=== PATIENT | male | born 1950 | race Two or more races ===

== ENCOUNTER 2019-08-13 12:26 | Inpatient (IN) | payer MEDICARE, OTHER ==
[~2019-08-13] VITALS: Ht 162.6 cm; Wt 74.4 kg
[2019-08-13] MEDS ORDERED: INDERAL LA60 MG ORAL (12:30)
--- NOTE | 2019-08-13 12:45 | NUR ---
ED Nurse Note: Pt arrived via ambulance for SOB. Pt came from MD office after having SOB starting today. Pt has had mid abdominal pain /10 for 1 month. He is set up on insole tack puller hand. Pt O2 is 95% RA, BP 186/117, HR 117. ERMD notified of vital signs.
--- NOTE | 2019-08-13 12:48 | NUR ---
ED Nurse Note: Report received from MARTA Parisi. Pt saturat at 91% room air. placed pt on 2 L nasal cannula. IV site established per RA 29; line patent and intact blood work drawn, and sent to lab. pt presents with Sinus tach of 117 and sbp of 178 informed ermd.
[2019-08-13 12:49] VITALS: BP 186/117
--- NOTE | 2019-08-13 12:59 | NUR ---
ED Nurse Note: xray at bedside
[2019-08-13 13:05] LABS: HEMATOCRIT 44.7 % (42.0-52.0); HEMOGLOBIN 15.3 G/DL (14.2-18.0); LYMPHOCYTES % (AUTO) 33.7 % (20.0-45.0); MEAN CORPUSCULAR VOLUME 91 FL (80-99); MONOCYTES % (AUTO) 7.4 % (1.0-10.0); NEUTROPHILS % (AUTO) 55.8 % (45.0-75.0); PLATELET COUNT 355 K/UL (150-450); RED BLOOD COUNT 4.93 M/UL (4.70-6.10); RED CELL DISTRIBUTION WIDTH 11.7 % (11.6-14.8); WHITE BLOOD COUNT 9.5 K/UL (4.8-10.8)
--- NOTE | 2019-08-13 13:12 | NUR ---
ED Nurse Note: ERMD aware of tachycardia 124 and hypertension of 195/144. Will continue to monitor and await further orders.
[2019-08-13 13:17] LABS: ANION GAP 11 mmol/L (5-15); BLOOD UREA NITROGEN 18 mg/dL (7-18); CALCIUM 8.9 MG/DL (8.5-10.1); CARBON DIOXIDE 25 MMOL/L (21-32); CHLORIDE 100 MMOL/L (98-107); CREATININE 1.3 MG/DL (0.55-1.30); POTASSIUM 4.2 MMOL/L (3.5-5.1); SODIUM 135 MMOL/L (136-145)
--- NOTE | 2019-08-13 13:25 | NUR ---
ED Nurse Note: COVID swab sent to lab
[2019-08-13 13:29] LABS: ALANINE AMINOTRANSFERASE 20 U/L (12-78); ALBUMIN/GLOBULIN RATIO 0.6 (1.0-2.7); ALKALINE PHOSPHATASE 93 U/L (46-116); ASPARTATE AMINO TRANSFERASE 22 U/L (15-37); BILIRUBIN,TOTAL 0.8 MG/DL (0.2-1.0)
[2019-08-13] MEDS ORDERED: Omnipaque 350 100ml vial INJ PRN (13:45)
[2019-08-13] MEDS ORDERED: Metoprolol Tartrate 5mg/5ml Inj IVP SCH (13:45)
--- NOTE | 2019-08-13 13:52 | NUR ---
ED Nurse Note: completed pt belongings list. pt has large sum of money; please refer to belongings list as reference. pt refuses to place money into safe.
--- NOTE | 2019-08-13 13:55 | NUR ---
ED Nurse Note: PT taken to CT on keith with radioloigy tech.
--- NOTE | 2019-08-13 14:05 | Diagnostic Imaging Report ---
Procedure: XRAY Chest 1v Reason for study: Cough and shortness of breath Comparison films: None. FINDINGS: A single one view chest is obtained. Vascularity is prominent. There is right perihilar and bibasilar infiltrates as well as left upper lobe infiltrates. There may be underlying edema as well. There is cardiomegaly. No large effusion seen. The bony thorax appear unremarkable. IMPRESSION: Congestion and bilateral alveolar densities suggestive of bilateral infiltrates. Underlying edema cannot be excluded.
--- NOTE | 2019-08-13 14:11 | NUR ---
ED Nurse Note: clarified medication order for lopressor q 5 min x3. per ermd administer one dose and reassess for now. will discuss if a second dose is needed.
[2019-08-13 14:20] VITALS: BP 135/99
--- NOTE | 2019-08-13 14:57 | Emergency Room Report ---
History of Present Illness General Chief Complaint: Dyspnea/Respdistress Source: EMS Present Illness HPI 69 yo M presents to ED c/o SOB. from MD office with SOB x 5 days. patient states mild cough. dry. no fevers or chills. no sick contacts or recent travel. denies taking any medication. No other aggravating relieving factors. Denies any other associated symptoms Allergies: Coded Allergies: No Known Allergies (Unverified , 08/13/19) COVID-19 Screening Contact w/high risk pt: No Recent Travel to affected area: No Experienced COVID-19 symptoms?: Yes COVID-19 symptoms experienced: Shortness of Breath COVID-19 Testing performed CHIP SEPARATOR: No Patient History Past Medical History: none Past Surgical History: none Pertinent Family History: none Social History: Denies: smoking, alcohol use, drug use Immunizations: UTD Reviewed Nursing Documentation: PMH: Agreed; PSxH: Agreed Nursing Documentation-PMH Past Medical History: No History, Except For Hx Cardiac Problems: Yes Review of Systems All Other Systems: negative except mentioned in HPI Physical Exam Vital Signs Date Time Temp Pulse Resp B/P (MAP) Pulse Ox O2 Delivery O2 Flow Rate FiO2 08/13/19 12:19 98.6 08/13/19 12:19 112 18 146/104 (118) 95 Room Air 08/13/19 12:49 99 08/13/19 14:20 2.0 Sp02 EP Interpretation: reviewed, normal General Appearance: no apparent distress, alert, GCS 15, non-toxic Head: normocephalic, atraumatic Eyes: bilateral eye normal inspection, bilateral eye PERRL ENT: hearing grossly normal, normal pharynx, no angioedema, normal voice Neck: full range of motion, supple/symm/no masses Respiratory: chest non-tender, lungs clear, normal breath sounds, speaking full sentences Cardiovascular #1: no edema, tachycardia Cardiovascular #2: 2+ carotid (R), 2+ carotid (L), 2+ radial (R), 2+ radial (L) , 2+ dorsalis pedis (R), 2+ dorsalis pedis (L) Gastrointestinal: normal bowel sounds, non tender, soft, non-distended, no guarding, no rebound Rectal: deferred Genitourinary: normal inspection, no CVA tenderness Musculoskeletal: back normal, normal range of motion, gait/station normal, swelling - 1+ pitting edema Neurologic: alert, motor strength/tone normal, oriented x3, sensory intact, responsive, speech normal Psychiatric: judgement/insight normal, memory normal, mood/affect normal, no suicidal/homicidal ideation Reflexes: 3+ bicep (R), 3+ bicep (L), 3+ tricep (R), 3+ tricep (L), 3+ knee (R) , 3+ knee (L) Skin: no rash Lymphatic: no adenopathy Procedures Critical Care Time Critical Care Time i. I feel this is a highly complex case requiring extensive working including EKG/Rhythm strip, Xray/CT/US, Blood/urine lab work, repeat exams while in ED, and administration of strong opiates/narcotics for pain control, admission to hospital or close patient follow up. Total time: 30 min bedside evaluation and treatment excludes procedures (EKG). Reason for critical care: hypertensive/tachycardia Possible complications: hypotension, hypertension, TX, shock, arrhythmias, metabolic acidosis, end organ damage, respiratory failure. Interventions: labs, EKG, CXR, CTA, lopressor, abx. Course: patient with SOB. trop 0.110, ddimer elevated, ?infiltrates on CXR. CTA shows bilateral effusions and infiltrates. given loperssor with BP and HR improved. given abx. covid swab sent. Consultations: nursing staff, EMS, family Performed by: Dr Chaudhary Tolerated well condition = serious j. because of unstable vital signs this patient had a condition that could potentially threaten life or limb. I feel this is a critical patient who required my full attention while patient was considered critical. Total Critical Care Time excluding procedures was greater than 35 minutes Medical Decision Making Diagnostic Impression: Primary Impression: Pleural effusion Additional Impression: Pneumonia Qualified Codes: J18.9 - Pneumonia, unspecified organism ER Course Hospital Course 69 yo M presents with SOB. Differential diagnoses include: Pneumonia, CHF exacerbation, pneumothorax, fluid overload Clinical course Patient placed on stretcher. Isolation. I wore full PPE. On tube room cashier with hypertension and tachycardia. After initial history and physical, I ordered labs, IV fluids, EKG, chest x-ray, blood cultures, UA. Patient placed on nasal cannula with O2 saturation improving Labs -no leukocytosis, hemoglobin/hematocrit stable, electrolytes ok, trop 0.110 , ddimer elevated CXR -bialteral infiltrates EKG - sinus tachycardia no acute ischemic changes inteprreted by me CTA chest - no PE, bilateral pleural effusions, bialteral infiltrates COVID swab sent. Given broad-spectrum antibiotics. Tachycardia and hypertension improved after Lopressor. Case discussed with Dr. Ayers and he agreed to the patient to his service for further care and support I feel this is a highly complex case requiring extensive working including EKG/ Rhythm strip, Xray/CT/US, Blood/urine lab work, repeat exams while in ED, and administration of strong opiates/narcotics for pain control, admission to hospital or close patient follow up. Diagnosis - pneumonia, pleural effusion Patient admitted to telemetry in serious condition Labs Test 08/13/19 12:46 White Blood Count 9.5 K/UL (4.8-10.8) Red Blood Count 4.93 M/UL (4.70-6.10) Hemoglobin 15.3 G/DL (14.2-18.0) Hematocrit 44.7 % (42.0-52.0) Mean Corpuscular Volume 91 FL (80-99) Mean Corpuscular Hemoglobin 31.1 PG (27.0-31.0) Mean Corpuscular Hemoglobin Concent 34.3 G/DL (32.0-36.0) Red Cell Distribution Width 11.7 % (11.6-14.8) Platelet Count 355 K/UL (150-450) Mean Platelet Volume 5.5 FL (6.5-10.1) Neutrophils (%) (Auto) 55.8 % (45.0-75.0) Lymphocytes (%) (Auto) 33.7 % (20.0-45.0) Monocytes (%) (Auto) 7.4 % (1.0-10.0) Eosinophils (%) (Auto) 2.0 % (0.0-3.0) Basophils (%) (Auto) 1.0 % (0.0-2.0) D-Dimer 3.78 mg/L FEU (0.00-0.49) Sodium Level 135 MMOL/L (136-145) Potassium Level 4.2 MMOL/L (3.5-5.1) Chloride Level 100 MMOL/L (98-107) Carbon Dioxide Level 25 MMOL/L (21-32) Anion Gap 11 mmol/L (5-15) Blood Urea Nitrogen 18 mg/dL (7-18) Creatinine 1.3 MG/DL (0.55-1.30) Estimat Glomerular Filtration Rate 54.7 mL/min (>60) Glucose Level 111 MG/DL (74-106) Lactic Acid Level 1.70 mmol/L (0.4-2.0) Calcium Level 8.9 MG/DL (8.5-10.1) Total Bilirubin 0.8 MG/DL (0.2-1.0) Aspartate Amino Transf (AST/SGOT) 22 U/L (15-37) Alanine Aminotransferase (ALT/SGPT) 20 U/L (12-78) Alkaline Phosphatase 93 U/L (46-116) Troponin I 0.110 ng/mL (0.000-0.056) Pro-B-Type Natriuretic Peptide 49603 pg/mL (0-125) Total Protein 8.3 G/DL (6.4-8.2) Albumin 3.0 G/DL (3.4-5.0) Globulin 5.3 g/dL Albumin/Globulin Ratio 0.6 (1.0-2.7) EKG Diagnostic Results Rate: tachycardiac Rhythm: NSR ST Segments: no acute changes ASA given to the pt in ED: No Rhythm Strip Diag. Results EP Interpretation: yes Rhythm: NSR, no PVC's, no ectopy Chest X-Ray Diagnostic Results Chest X-Ray Diagnostic Results : Chest X-Ray Ordered: Yes # of Views/Limited/Complete: 1 View Indication: Shortness of Breath EP Interpretation: Yes Interpretation: no pneumothorax, other - infiltrates bilaterally Impression: Other - pneumonia Electronically Signed by: Electronically signed by Gold Chaudhary MD CT/MRI/US Diagnostic Results CT/MRI/US Diagnostic Results : Imaging Test Ordered: CTA chest Impression Procedure: CTA Chest w Contrast EXAM: CT CTA Chest w Contrast CLINICAL HISTORY: Reason For Exam: SOB. TECHNIQUE: CT angiogram of the pulmonary vasculature performed with IV contrast. 2-D and 3-D reformat images obtained. All CT scans at this facility are performed using dose modulation techniques as appropriate to a performed exam including the following: automated exposure control with adjustment of the mA and/or kV according to patient size. RADIATION DOSE: CTDIvol: 69.9 mGy DLP: 282.1 mGy-cm Dose information generated by the CT scanner is available in PACS. COMPARISON: None FINDINGS: There is adequate opacification of the pulmonary vascularity. There is no central filling defects or thrombus identified. Peripheral subsegmental branches also appear unremarkable. Aorta is normal in caliber. There is no mediastinal mass or adenopathy. There are bilateral infiltrates left greater than right. Bilateral moderate pleural effusions demonstrated. Limited images through the upper abdomen show a cirrhotic liver. Small layering gallstones at the gallbladder neck. Degenerative changes of the spine noted. IMPRESSION: NO CT EVIDENCE OF PULMONARY EMBOLISM. BILATERAL INFILTRATES AND BILATERAL EFFUSIONS. CIRRHOSIS. GALLSTONES. Last Vital Signs Date Time Temp Pulse Resp B/P (MAP) Pulse Ox O2 Delivery O2 Flow Rate FiO2 08/13/19 14:20 98.9 102 24 135/99 96 Nasal Cannula 2.0 08/13/19 12:49 99 Status: improved Disposition: ADMITTED INPATIENT Condition: Serious Referrals: NON PHYSICIAN (PCP) Gold Chaudhary MD August 13, 2019 14:57
[2019-08-13] MEDS ORDERED: Piperacillin/Tazobactam 3.375 GM in NS 110 ML IVPB ONE (15:00)
[2019-08-13] MEDS ORDERED: Azithromycin 500 MG in NS 275 ML IV ONE (15:00)
[2019-08-13 15:08] VITALS: BP 149/103
--- NOTE | 2019-08-13 16:13 | NUR ---
ED Nurse Note: Pt in bed asleep saturating at 100% on 2 L nasal cannula; NAD noted.
--- NOTE | 2019-08-13 17:05 | NUR ---
ED Nurse Note: Pt complaining about dry throat and cough. pt provided with water informed ermd waiting for further orders
[2019-08-13 17:07] VITALS: BP 120/96
[2019-08-13] MEDS ORDERED: guaiFENesin 100mg/5ml Liq ud ORAL ONE (17:15)
[2019-08-13] MEDS ORDERED: Mylanta II UD 30ml ORAL PRN (18:15)
[2019-08-13] MEDS ORDERED: Milk of Magnesia 30ml Ud ORAL PRN (18:15)
[2019-08-13] MEDS ORDERED: DiphenhydrAMINE 25mg Tab ORAL PRN (18:15)
[2019-08-13] MEDS ORDERED: Albuterol/Ipratropium 3ml neb HHN PRN (18:15)
--- NOTE | 2019-08-13 18:28 | NUR ---
ED Nurse Note: telephone endorsement given to MARTA zhang for continuity of care
--- NOTE | 2019-08-13 19:05 | NUR ---
ED Nurse Note: endorsed plan of care to MARTA glass
[2019-08-13 19:10] VITALS: BP 130/98
--- NOTE | 2019-08-13 19:10 | NUR ---
ED Nurse Note: Report received from MARTA Dawn. Pt is resting in bed, NAD. VSS. Pt will be taken to tele unit and pt is aware of admission.
--- NOTE | 2019-08-13 19:30 | NUR ---
ED Nurse Note: Spoke with pt daughter Tiera regarding pt status with permission of pt. Pt daughter would like to be contacted with any changes in condition. Tiera's number is [phone].
[2019-08-13] MEDS ORDERED: Vancomycin 1.25gm/NS Premix IVPB ONE (20:00)
--- NOTE | 2019-08-13 20:05 | NUR ---
ED Nurse Note: Pt is stable for transfer to unit at this time per ERMD. Pt is aaox4, no acute distress. Pt remains on 2L of oxygen via NC, breathing is normal and unlabored. Pt taken to unit via gurney by trish and RN, connected to surveillance system monitor. ISO precuations taken for transfer to unit. IV is patent and intact. Pt belongings sent with pt. VSS.
--- NOTE | 2019-08-13 20:12 | NUR ---
NURSE NOTES: Received report from MARTA Carballo. Patient was transferred to Telemetry unit from ER via gurney without incident. No signs of acute distress noted; denies pain at this time. On 2L nasal cannula. AOx4; able to make needs known. Primarily Portuguese speaking, but understands and speaks [place]. Ambulates independently with steady gait. Checked IV site; patent and flushed. No erythema, bleeding, or infiltration noted. Belongings list checked with patient. Skin assessment performed; skin is intact. Bed at lowest position, brakes on, siderails up x2. Call light within reach. Will continue to monitor.
[2019-08-13 20:40] VITALS: BP 139/89
[2019-08-13] MEDS: Heparin 5000 units/ml inj SUBQ SCH (21:36)
[2019-08-13] MEDS: Docusate 100mg cap ORAL SCH (21:36)
[2019-08-14] VITALS: BP 130/86
[2019-08-14] MEDS: Piperacillin/Tazobactam 3.375 GM in NS 110 ML IVPB SCH ×2 (00:06→05:39)
[2019-08-14 04:00] VITALS: BP 135/84
[2019-08-14 07:00] LABS: EOSINOPHILS % (AUTO) 2.1 % (0.0-3.0); HEMATOCRIT 43.4 % (42.0-52.0); HEMOGLOBIN 14.9 G/DL (14.2-18.0); LYMPHOCYTES % (AUTO) 27.9 % (20.0-45.0); MEAN CORPUSCULAR VOLUME 91 FL (80-99); MONOCYTES % (AUTO) 11.3 % (1.0-10.0); NEUTROPHILS % (AUTO) 57.7 % (45.0-75.0); PLATELET COUNT 313 K/UL (150-450); RED BLOOD COUNT 4.75 M/UL (4.70-6.10); RED CELL DISTRIBUTION WIDTH 11.9 % (11.6-14.8); WHITE BLOOD COUNT 9.7 K/UL (4.8-10.8)
[2019-08-14 07:34] LABS: ANION GAP 11 mmol/L (5-15); BLOOD UREA NITROGEN 21 mg/dL (7-18); CALCIUM 8.8 MG/DL (8.5-10.1); CARBON DIOXIDE 26 MMOL/L (21-32); CHLORIDE 103 MMOL/L (98-107); CREATININE 1.4 MG/DL (0.55-1.30); POTASSIUM 4.5 MMOL/L (3.5-5.1); SODIUM 139 MMOL/L (136-145)
--- NOTE | 2019-08-14 07:40 | NUR ---
NURSE NOTES: Nurse report given by MARTA Ha. Patient's awake and sitting in bed, eating breakfast, eyes open spontaneously, AO x 4, breathing regular and unlabored, no s/s of distress or SOB, no s/s of pain, denies chest pain, PERRLA. Bed low and locked, call light within reach, side rails x 2, delivery engineer is on. IV is running mediation at this time, no s/s of tenderness or infiltration. Will continue to monitor.
--- NOTE | 2019-08-14 07:40 | NUR ---
HAND-OFF: Report given to MARTA Carballo. Patient is awake lying semi-barahona's; resting comfortably. In stable condition.
[2019-08-14 08:00] VITALS: BP 152/96
[2019-08-14] MEDS: Docusate 100mg cap ORAL SCH ×2 (08:40→21:44)
[2019-08-14] MEDS: Heparin 5000 units/ml inj SUBQ SCH ×2 (08:41→21:43)
--- NOTE | 2019-08-14 08:53 | Cardiac Electrophysiology PN ---
Objective Last 24 Hour Vital Signs Date Time Temp Pulse Resp B/P (MAP) Pulse Ox O2 Delivery O2 Flow Rate FiO2 08/14/19 04:00 98.2 105 16 135/84 (101) 92 08/14/19 04:00 102 08/14/19 01:30 Nasal Cannula 2.0 08/14/19 00:00 97.5 100 18 130/86 (101) 93 08/14/19 00:00 102 08/13/19 20:42 106 08/13/19 20:40 97.2 108 18 139/89 (106) 93 08/13/19 20:05 98.8 85 20 145/90 100 Nasal Cannula 2.0 08/13/19 19:10 98.8 99 20 130/98 97 Nasal Cannula 2.0 08/13/19 17:07 98.9 97 23 120/96 96 Nasal Cannula 2.0 99 08/13/19 15:08 98.9 96 24 149/103 93 Nasal Cannula 2.0 99 08/13/19 14:20 98.9 102 24 135/99 96 Nasal Cannula 2.0 08/13/19 14:12 121 195/111 08/13/19 12:49 117 19 Room Air 99 08/13/19 12:49 98.6 117 19 186/117 95 Room Air 08/13/19 12:19 99.0 112 18 146/104 (118) 95 Room Air 08/13/19 12:19 98.6 Intake and Output 08/13/19 08/14/19 19:00 07:00 Intake Total 385 ml 659.3 ml Output Total 400 ml Balance 385 ml 259.3 ml Intake Oral 0 ml 240 ml IV Total 385 ml 419.3 ml Output Urine Total 400 ml # Voids 1 Laboratory Tests Test 08/13/19 12:46 08/13/19 19:15 08/14/19 05:33 White Blood Count 9.5 K/UL (4.8-10.8) 9.7 K/UL (4.8-10.8) Red Blood Count 4.93 M/UL (4.70-6.10) 4.75 M/UL (4.70-6.10) Hemoglobin 15.3 G/DL (14.2-18.0) 14.9 G/DL (14.2-18.0) Hematocrit 44.7 % (42.0-52.0) 43.4 % (42.0-52.0) Mean Corpuscular Volume 91 FL (80-99) 91 FL (80-99) Mean Corpuscular Hemoglobin 31.1 PG (27.0-31.0) H 31.3 PG (27.0-31.0) H Mean Corpuscular Hemoglobin Concent 34.3 G/DL (32.0-36.0) 34.4 G/DL (32.0-36.0) Red Cell Distribution Width 11.7 % (11.6-14.8) 11.9 % (11.6-14.8) Platelet Count 355 K/UL (150-450) 313 K/UL (150-450) Mean Platelet Volume 5.5 FL (6.5-10.1) L 5.6 FL (6.5-10.1) L Neutrophils (%) (Auto) 55.8 % (45.0-75.0) 57.7 % (45.0-75.0) Lymphocytes (%) (Auto) 33.7 % (20.0-45.0) 27.9 % (20.0-45.0) Monocytes (%) (Auto) 7.4 % (1.0-10.0) 11.3 % (1.0-10.0) H Eosinophils (%) (Auto) 2.0 % (0.0-3.0) 2.1 % (0.0-3.0) Basophils (%) (Auto) 1.0 % (0.0-2.0) 1.0 % (0.0-2.0) D-Dimer 3.78 mg/L FEU (0.00-0.49) H Sodium Level 135 MMOL/L (136-145) L 139 MMOL/L (136-145) Potassium Level 4.2 MMOL/L (3.5-5.1) 4.5 MMOL/L (3.5-5.1) Chloride Level 100 MMOL/L (98-107) 103 MMOL/L (98-107) Carbon Dioxide Level 25 MMOL/L (21-32) 26 MMOL/L (21-32) Anion Gap 11 mmol/L (5-15) 11 mmol/L (5-15) Blood Urea Nitrogen 18 mg/dL (7-18) 21 mg/dL (7-18) H Creatinine 1.3 MG/DL (0.55-1.30) 1.4 MG/DL (0.55-1.30) H Estimat Glomerular Filtration Rate 54.7 mL/min (>60) 50.2 mL/min (>60) Glucose Level 111 MG/DL (74-106) H 88 MG/DL (74-106) Lactic Acid Level 1.70 mmol/L (0.4-2.0) Calcium Level 8.9 MG/DL (8.5-10.1) 8.8 MG/DL (8.5-10.1) Total Bilirubin 0.8 MG/DL (0.2-1.0) Aspartate Amino Transf (AST/SGOT) 22 U/L (15-37) Alanine Aminotransferase (ALT/SGPT) 20 U/L (12-78) Alkaline Phosphatase 93 U/L (46-116) Troponin I 0.110 ng/mL (0.000-0.056) 0.090 ng/mL (0.000-0.056) Pro-B-Type Natriuretic Peptide 40758 pg/mL (0-125) H Total Protein 8.3 G/DL (6.4-8.2) H Albumin 3.0 G/DL (3.4-5.0) L Globulin 5.3 g/dL Albumin/Globulin Ratio 0.6 (1.0-2.7) L Cain Arteaga MD August 14, 2019 08:53
--- NOTE | 2019-08-14 10:17 | Consultation ---
History of Present Illness General Date patient seen: August 14, 2019 Chief Complaint: Dyspnea/Respdistress Reason for Consultation: Shortness of breath Present Illness HPI This is a 69 year old male with past medical history significant for hypertension and HLD presents with progressively worsening shortness of breath over the past several days. Notes low grade fever, chills, dry cough. No chest pain. NOo nausea, abdominal pain or diarrhea. He underwent CT chest in the ED as noted below. CHEST CT: IMPRESSION: NO CT EVIDENCE OF PULMONARY EMBOLISM. BILATERAL INFILTRATES AND BILATERAL EFFUSIONS. CIRRHOSIS. GALLSTONES. Allergies: Coded Allergies: No Known Allergies (Unverified , 08/13/19) Medication History Scheduled Propranolol Hcl* (Inderal La*), 60 MG ORAL DAILY, (Reported) Patient History Healthcare decision maker Resuscitation status Advanced Directive on File Physical Exam General Appearance: WD/WN, no apparent distress Lines, tubes and drains: peripheral HEENT: normocephalic, atraumatic Neck: non-tender, normal alignment Respiratory/Chest: chest wall non-tender, rhonchi - bilaterally Cardiovascular/Chest: normal peripheral pulses, normal rate, regular rhythm Abdomen: normal bowel sounds, non tender, soft, no mass Extremities: non-tender, normal inspection, no calf tenderness Skin Exam: no diaphoresis Neurologic: alert, oriented x 3, responsive Musculoskeletal: normal muscle bulk Last 24 Hour Vital Signs Date Time Temp Pulse Resp B/P (MAP) Pulse Ox O2 Delivery O2 Flow Rate FiO2 08/14/19 09:31 112 152/96 08/14/19 09:00 Nasal Cannula 2.0 08/14/19 08:00 97.5 112 19 152/96 (114) 95 08/14/19 08:00 106 08/14/19 04:00 98.2 105 16 135/84 (101) 92 08/14/19 04:00 102 08/14/19 01:30 Nasal Cannula 2.0 08/14/19 00:00 97.5 100 18 130/86 (101) 93 08/14/19 00:00 102 08/13/19 20:42 106 08/13/19 20:40 97.2 108 18 139/89 (106) 93 08/13/19 20:05 98.8 85 20 145/90 100 Nasal Cannula 2.0 08/13/19 19:10 98.8 99 20 130/98 97 Nasal Cannula 2.0 08/13/19 17:07 98.9 97 23 120/96 96 Nasal Cannula 2.0 99 08/13/19 15:08 98.9 96 24 149/103 93 Nasal Cannula 2.0 99 08/13/19 14:20 98.9 102 24 135/99 96 Nasal Cannula 2.0 08/13/19 14:12 121 195/111 08/13/19 12:49 117 19 Room Air 99 08/13/19 12:49 98.6 117 19 186/117 95 Room Air 08/13/19 12:19 99.0 112 18 146/104 (118) 95 Room Air 08/13/19 12:19 98.6 Intake and Output 08/13/19 08/14/19 19:00 07:00 Intake Total 385 ml 659.3 ml Output Total 400 ml Balance 385 ml 259.3 ml Intake Oral 0 ml 240 ml IV Total 385 ml 419.3 ml Output Urine Total 400 ml # Voids 1 Laboratory Tests Test 08/13/19 12:46 08/13/19 19:15 08/14/19 05:33 White Blood Count 9.5 K/UL (4.8-10.8) 9.7 K/UL (4.8-10.8) Red Blood Count 4.93 M/UL (4.70-6.10) 4.75 M/UL (4.70-6.10) Hemoglobin 15.3 G/DL (14.2-18.0) 14.9 G/DL (14.2-18.0) Hematocrit 44.7 % (42.0-52.0) 43.4 % (42.0-52.0) Mean Corpuscular Volume 91 FL (80-99) 91 FL (80-99) Mean Corpuscular Hemoglobin 31.1 PG (27.0-31.0) H 31.3 PG (27.0-31.0) H Mean Corpuscular Hemoglobin Concent 34.3 G/DL (32.0-36.0) 34.4 G/DL (32.0-36.0) Red Cell Distribution Width 11.7 % (11.6-14.8) 11.9 % (11.6-14.8) Platelet Count 355 K/UL (150-450) 313 K/UL (150-450) Mean Platelet Volume 5.5 FL (6.5-10.1) L 5.6 FL (6.5-10.1) L Neutrophils (%) (Auto) 55.8 % (45.0-75.0) 57.7 % (45.0-75.0) Lymphocytes (%) (Auto) 33.7 % (20.0-45.0) 27.9 % (20.0-45.0) Monocytes (%) (Auto) 7.4 % (1.0-10.0) 11.3 % (1.0-10.0) H Eosinophils (%) (Auto) 2.0 % (0.0-3.0) 2.1 % (0.0-3.0) Basophils (%) (Auto) 1.0 % (0.0-2.0) 1.0 % (0.0-2.0) D-Dimer 3.78 mg/L FEU (0.00-0.49) H Sodium Level 135 MMOL/L (136-145) L 139 MMOL/L (136-145) Potassium Level 4.2 MMOL/L (3.5-5.1) 4.5 MMOL/L (3.5-5.1) Chloride Level 100 MMOL/L (98-107) 103 MMOL/L (98-107) Carbon Dioxide Level 25 MMOL/L (21-32) 26 MMOL/L (21-32) Anion Gap 11 mmol/L (5-15) 11 mmol/L (5-15) Blood Urea Nitrogen 18 mg/dL (7-18) 21 mg/dL (7-18) H Creatinine 1.3 MG/DL (0.55-1.30) 1.4 MG/DL (0.55-1.30) H Estimat Glomerular Filtration Rate 54.7 mL/min (>60) 50.2 mL/min (>60) Glucose Level 111 MG/DL (74-106) H 88 MG/DL (74-106) Lactic Acid Level 1.70 mmol/L (0.4-2.0) Calcium Level 8.9 MG/DL (8.5-10.1) 8.8 MG/DL (8.5-10.1) Total Bilirubin 0.8 MG/DL (0.2-1.0) Aspartate Amino Transf (AST/SGOT) 22 U/L (15-37) Alanine Aminotransferase (ALT/SGPT) 20 U/L (12-78) Alkaline Phosphatase 93 U/L (46-116) Troponin I 0.110 ng/mL (0.000-0.056) 0.090 ng/mL (0.000-0.056) Pro-B-Type Natriuretic Peptide 44177 pg/mL (0-125) H Total Protein 8.3 G/DL (6.4-8.2) H Albumin 3.0 G/DL (3.4-5.0) L Globulin 5.3 g/dL Albumin/Globulin Ratio 0.6 (1.0-2.7) L Height (Feet): 5 Height (Inches): 4.00 Weight (Pounds): 169 Medications Current Medications Medications (Trade) Dose Ordered Sig/Jaspreet Route PRN Reason Start Time Stop Time Status Last Admin Dose Admin Acetaminophen (Tylenol) 650 mg Q4H PRN ORAL Mild Pain (Pain Scale 1-3) 08/13/19 18:15 09/12/19 18:14 Al Hydroxide/Mg Hydroxide (Mylanta II) 30 ml Q6H PRN ORAL dyspepsia 08/13/19 18:15 09/12/19 18:14 Albuterol/ Ipratropium (Albuterol/ Ipratropium) 3 ml Q6H PRN HHN Shortness of Breath 08/13/19 18:15 08/18/19 18:14 Carvedilol (Coreg) 3.125 mg EVERY 12 HOURS ORAL 08/14/19 09:00 09/13/19 08:59 08/14/19 09:31 Dextrose (Dextrose 50%) 25 ml Q30M PRN IV Hypoglycemia 08/13/19 18:15 11/11/19 18:14 Dextrose (Dextrose 50%) 50 ml Q30M PRN IV Hypoglycemia 08/13/19 18:15 11/11/19 18:14 Diphenhydramine HCl (Benadryl) 25 mg Q6H PRN ORAL Itching/Pruritis 08/13/19 18:15 09/12/19 18:14 Docusate Sodium (Colace) 100 mg EVERY 12 HOURS ORAL 08/13/19 21:00 09/12/19 20:59 08/14/19 08:40 Furosemide (Lasix) 40 mg DAILY IV 08/14/19 09:00 09/13/19 08:59 08/14/19 09:31 Heparin Sodium (Porcine) (Heparin 5000 units/ml) 5,000 units EVERY 12 HOURS SUBQ 08/13/19 21:00 09/27/19 20:59 08/14/19 08:41 Iohexol (Omnipaque 350 100ml) 100 ml NOW PRN INJ Radiology Procedure 08/13/19 13:45 08/15/19 13:41 Lorazepam (Ativan) 2 mg TIDPRN PRN ORAL For Anxiety 08/14/19 09:45 08/21/19 09:44 Magnesium Hydroxide (Mom) 30 ml HSPRN PRN ORAL Constipation 08/13/19 18:15 09/12/19 18:14 Ondansetron HCl (Zofran) 4 mg Q6H PRN IVP Nausea & Vomiting 08/13/19 18:15 09/12/19 18:14 Tamsulosin HCl (Flomax) 0.4 mg BEDTIME ORAL 08/14/19 21:00 09/13/19 20:59 Temazepam (Restoril) 15 mg HSPRN PRN ORAL Insomnia 08/13/19 18:15 08/20/19 18:14 Assessment/Plan Diagnosis [place] I: #LUPIS- monitor for contrast induced nephropathy #SOB- r/o COVID, r/o CHF- given elevated BNP #Elevated troponin #Cirrhosis on imaging #HTN #HLD #BPH - monitor for ISAI - r/o covid - continue ceftriaxone and doxy per ID - 2d echo when covid ruled out - diuresis per cardiology - monitor BMP, mag and phos - continue coreg 3.125mg BID - continue flomax 0.4mg daily - avoid nephrotoxins - strict I&Os - daily weights Time spent 65 min, > 50% on care coodination and counseling Brandi Real M.D. August 14, 2019 10:17
[2019-08-14 11:00] LABS: APPEARANCE,URINE CLEAR; BILIRUBIN, URINE NEGATIVE (NEGATIVE); COLOR,URINE PALE YELLOW; GLUCOSE, URINE (UA) NEGATIVE (NEGATIVE); KETONES,URINE NEGATIVE (NEGATIVE); LEUKOCYTE ESTERASE ,URINE NEGATIVE (NEGATIVE); NITRITE,URINE NEGATIVE (NEGATIVE); PH,URINE 7 (4.5-8.0); PROTEIN,URINE NEGATIVE (NEGATIVE); UROBILINOGEN,URINE NORMAL MG/DL (0.0-1.0)
--- NOTE | 2019-08-14 11:47 | NUR ---
NURSE NOTES: Patient wants to shower. MD Mena aware and ordered off tele.
[2019-08-14 12:00] VITALS: BP 131/90
[2019-08-14] MEDS: LORazepam 1mg tab ORAL PRN (13:48)
--- NOTE | 2019-08-14 15:07 | NUR ---
CASE MANAGEMENT:REVIEW 69 YR OLD MALE BIBA FROM MD'S OFFICE CC: SOB X5 DAYS SI: PNEUMONIA. PLEURAL EFFUSION 98.9 112 18 146/104 91% ON RA D-DIMER+3.78 TROPONIN(+) 0.110 BNP+[id number] IS: PLACED ON 2L/NC IV PEPCID BLOOD CX CHEST XRAY BLOOD CX COVID 19 SWAB : TO TELEMETRY PLAN: ISOLATION
[2019-08-14 16:00] VITALS: BP 115/79
--- NOTE | 2019-08-14 16:30 | Consultation ---
DATE OF CONSULTATION: 08/14/2019 CARDIOLOGY CONSULTATION CONSULTING PHYSICIAN: Cain Arteaga MD. REFERRING PHYSICIAN: Ivon Russ MD. ADDITIONAL REFERRING PHYSICIAN: Chance Brand MD. REASON FOR CONSULTATION: Chest pain and shortness of breath. HISTORY OF PRESENT ILLNESS: The patient is a 69-year-old gentleman with history of hypertension, came to the emergency room for increased shortness of breath for 5 days duration from the doctor's office. The patient is being ruled out for COVID. Troponin was mildly elevated at 0.110 with repeat troponin of 0.09. His BNP was more than 17,000. Cardiology consultation was obtained for further evaluation. REVIEW OF SYSTEMS: Review of systems was negative other than what was mentioned in the history of present illness. PAST MEDICAL HISTORY: Hypertension. FAMILY HISTORY: Noncontributory. SOCIAL HISTORY: Denies smoking, drinking alcohol, or using drugs. PHYSICAL EXAMINATION: VITAL SIGNS: Blood pressure of 135/84, pulse is 105, respirations 18, temperature 98.2. HEAD AND NECK: Showed no JVD. LUNGS: Clear. CARDIOVASCULAR: Regular S1 and S2 with no gallop or murmur. ABDOMEN: Soft. EXTREMITIES: No pitting edema. LABORATORY AND DIAGNOSTIC DATA: EKG showed sinus tachycardia with nonspecific ST-T wave abnormalities with suggestive of possible anteroseptal myocardial infarction. Labs show sodium 139, potassium 4.5, BUN of 21, creatinine 1.4, and glucose of 88. Troponin is 0.110 and 0.090. White count is 9.7, hemoglobin 14.9, hematocrit 43.4, and platelet count of 313. D-dimer is 3.78. ASSESSMENT AND PLAN: 1. Chest pain. The patient's troponin is mildly elevated. The patient underwent a chest CT angiogram to rule out pulmonary embolism in view of positive D-dimer that showed no evidence of pulmonary embolism, however, the patient had bilateral infiltrate and effusions. CT was also suggestive of cirrhosis and gallstones. The patient also has mild renal failure, creatinine 1.4. We will repeat EKG and echocardiogram, put him on aspirin, beta-ary, and statin until further information is available. 2. Shortness of breath and possible pneumonia. The patient will be started on vancomycin and Zosyn per ID. 3. Hypertension. Keep the patient on metoprolol especially in view of the patient's possible acute coronary syndrome with elevated troponin. Thank you very much, Dr. Clark, for allowing me to participate in the care of this patient. Please do not hesitate to contact me for any questions regarding my evaluation. Sincerely, Cain Arteaga M.D. DR: Gracie JOB#: [id number] CC:
--- NOTE | 2019-08-14 17:30 | Consultation ---
DATE OF CONSULTATION: 08/14/2019 PULMONARY CONSULTATION HISTORY OF PRESENT ILLNESS: This is a 69-year-old male who was sent in from his doctor's office with shortness of breath. He reports he has done well for the last few days. He reports a dry cough. No fever. No chills. He denies taking any medications. He has no other medical conditions. The patient was seen and evaluated in the emergency room and admitted to the hospital for subsequent management and care. PAST MEDICAL HISTORY: None. PAST SURGICAL HISTORY: None. FAMILY HISTORY: None. SOCIAL HISTORY: No history of alcohol or tobacco usage. REVIEW OF SYSTEMS: Denies any headaches, hematemesis, melena, hematochezia. PHYSICAL EXAMINATION: VITAL SIGNS: Blood pressure 130/90, heart rate 110, respirations 18, O2 saturation 98% on 2 L of oxygen. GENERAL: Reveals comfortable male. HEENT: Unremarkable. CHEST: Clear breath sounds. ABDOMEN: Soft. . LABORATORY DATA: Lab testing shows normal CBC and BMP with a creatinine 1.4. Coags are negative. Urinalysis is negative. He has a D-dimer of 3.78 which is high. The patient had a CT chest angio, which shows bilateral pulmonary infiltrates and small effusions. He also has evidence of liver cirrhosis, moderate pleural effusions, and gallstones. IMPRESSION: 1. Liver cirrhosis. 2. Cholelithiasis. 3. Bilateral pulmonary infiltrates. 4. Pneumonia. DISCUSSION: Admitted to the hospital. I suspect he may have COVID-19. Await testing. Continue isolation. We will follow carefully. Currently, he is comfortable on room air. We will follow carefully. Tommie Mena M.D. DR: Mo JOB#: [id number] CC:
--- NOTE | 2019-08-14 18:34 | Infectious Diseases Prog Note ---
Assessment/Plan Assessment/Plan Full consult dictated: A) 1) sob, possible covid-19 virus infection with pna, ? CAP 2) pmh noted 3) allergies - nkda P) 1) ceftriaxone and doxycycline (drug interaction with azithromycin) 2) await covid-19 virus testing 3) f/u on serology, labs and chest x-ray 4) thank you Subjective Allergies: Coded Allergies: No Known Allergies (Unverified , 08/13/19) Objective Vital Signs Last 24 Hour Vital Signs Date Time Temp Pulse Resp B/P (MAP) Pulse Ox O2 Delivery O2 Flow Rate FiO2 08/14/19 16:00 98.0 98 20 115/79 (91) 93 08/14/19 16:00 94 08/14/19 12:00 97.8 107 20 131/90 (104) 94 08/14/19 12:00 107 08/14/19 09:31 112 152/96 08/14/19 09:00 Nasal Cannula 2.0 08/14/19 08:00 97.5 112 19 152/96 (114) 95 08/14/19 08:00 106 08/14/19 04:00 98.2 105 16 135/84 (101) 92 08/14/19 04:00 102 08/14/19 01:30 Nasal Cannula 2.0 08/14/19 00:00 97.5 100 18 130/86 (101) 93 08/14/19 00:00 102 08/13/19 20:42 106 08/13/19 20:40 97.2 108 18 139/89 (106) 93 08/13/19 20:05 98.8 85 20 145/90 100 Nasal Cannula 2.0 08/13/19 19:10 98.8 99 20 130/98 97 Nasal Cannula 2.0 Height (Feet): 5 Height (Inches): 4.00 Weight (Pounds): 169 Laboratory Tests Test 08/13/19 19:15 08/14/19 05:33 08/14/19 10:50 Troponin I 0.090 ng/mL (0.000-0.056) White Blood Count 9.7 K/UL (4.8-10.8) Red Blood Count 4.75 M/UL (4.70-6.10) Hemoglobin 14.9 G/DL (14.2-18.0) Hematocrit 43.4 % (42.0-52.0) Mean Corpuscular Volume 91 FL (80-99) Mean Corpuscular Hemoglobin 31.3 PG (27.0-31.0) H Mean Corpuscular Hemoglobin Concent 34.4 G/DL (32.0-36.0) Red Cell Distribution Width 11.9 % (11.6-14.8) Platelet Count 313 K/UL (150-450) Mean Platelet Volume 5.6 FL (6.5-10.1) L Neutrophils (%) (Auto) 57.7 % (45.0-75.0) Lymphocytes (%) (Auto) 27.9 % (20.0-45.0) Monocytes (%) (Auto) 11.3 % (1.0-10.0) H Eosinophils (%) (Auto) 2.1 % (0.0-3.0) Basophils (%) (Auto) 1.0 % (0.0-2.0) Sodium Level 139 MMOL/L (136-145) Potassium Level 4.5 MMOL/L (3.5-5.1) Chloride Level 103 MMOL/L (98-107) Carbon Dioxide Level 26 MMOL/L (21-32) Anion Gap 11 mmol/L (5-15) Blood Urea Nitrogen 21 mg/dL (7-18) H Creatinine 1.4 MG/DL (0.55-1.30) H Estimat Glomerular Filtration Rate 50.2 mL/min (>60) Glucose Level 88 MG/DL (74-106) Calcium Level 8.8 MG/DL (8.5-10.1) Urine Color Pale yellow Urine Appearance Clear Urine pH 7 (4.5-8.0) Urine Specific [place] 1.005 (1.005-1.035) Urine Protein Negative (NEGATIVE) Urine Glucose (UA) Negative (NEGATIVE) Urine Ketones Negative (NEGATIVE) Urine Blood Negative (NEGATIVE) Urine Nitrite Negative (NEGATIVE) Urine Bilirubin Negative (NEGATIVE) Urine Urobilinogen Normal MG/DL (0.0-1.0) Urine Leukocyte Esterase Negative (NEGATIVE) Urine Random Sodium 107 mmol/L (20-110) Urine Creatinine < 5.0 MG/DL (30.0-125.0) L Current Medications Medications (Trade) Dose Ordered Sig/Jaspreet Route PRN Reason Start Time Stop Time Status Last Admin Dose Admin Acetaminophen (Tylenol) 650 mg Q4H PRN ORAL Mild Pain (Pain Scale 1-3) 08/13/19 18:15 09/12/19 18:14 Al Hydroxide/Mg Hydroxide (Mylanta II) 30 ml Q6H PRN ORAL dyspepsia 08/13/19 18:15 09/12/19 18:14 Albuterol/ Ipratropium (Albuterol/ Ipratropium) 3 ml Q6H PRN HHN Shortness of Breath 08/13/19 18:15 08/18/19 18:14 Carvedilol (Coreg) 3.125 mg EVERY 12 HOURS ORAL 08/14/19 09:00 09/13/19 08:59 08/14/19 09:31 Dextrose (Dextrose 50%) 25 ml Q30M PRN IV Hypoglycemia 08/13/19 18:15 11/11/19 18:14 Dextrose (Dextrose 50%) 50 ml Q30M PRN IV Hypoglycemia 08/13/19 18:15 11/11/19 18:14 Diphenhydramine HCl (Benadryl) 25 mg Q6H PRN ORAL Itching/Pruritis 08/13/19 18:15 09/12/19 18:14 Docusate Sodium (Colace) 100 mg EVERY 12 HOURS ORAL 08/13/19 21:00 09/12/19 20:59 08/14/19 08:40 Furosemide (Lasix) 40 mg DAILY IV 08/14/19 09:00 09/13/19 08:59 08/14/19 09:31 Heparin Sodium (Porcine) (Heparin 5000 units/ml) 5,000 units EVERY 12 HOURS SUBQ 08/13/19 21:00 09/27/19 20:59 08/14/19 08:41 Iohexol (Omnipaque 350 100ml) 100 ml NOW PRN INJ Radiology Procedure 08/13/19 13:45 08/15/19 13:41 Lorazepam (Ativan) 2 mg TIDPRN PRN ORAL For Anxiety 08/14/19 09:45 08/21/19 09:44 08/14/19 13:48 Magnesium Hydroxide (Mom) 30 ml HSPRN PRN ORAL Constipation 08/13/19 18:15 09/12/19 18:14 Ondansetron HCl (Zofran) 4 mg Q6H PRN IVP Nausea & Vomiting 08/13/19 18:15 09/12/19 18:14 Tamsulosin HCl (Flomax) 0.4 mg BEDTIME ORAL 08/14/19 21:00 09/13/19 20:59 Temazepam (Restoril) 15 mg HSPRN PRN ORAL Insomnia 08/13/19 18:15 08/20/19 18:14 Joshua Olivares MD August 14, 2019 18:34
[2019-08-14] MEDS: cefTRIAXone 1 GM in D5W 50 ML IVPB SCH (18:42)
--- NOTE | 2019-08-14 19:15 | NUR ---
HAND-OFF: Report given to MARTA Ha. Patient's stable, plan of care endorsed.
--- NOTE | 2019-08-14 19:21 | NUR ---
NURSE NOTES: Received report from MARTA Carballo. Patient is awake lying semi-barahona's; resting comfortably. No signs of acute distress noted; denies pain at this time. AOx4; able to make needs known. Primarily Yi speaking, but understands and speaks Montenegrin. Ambulates independently with steady gait. Checked IV site; patent and flushed. No erythema, bleeding, or infiltration noted. Urinal easily accessible. Bed at lowest position, brakes on, siderails up x2. Call light within reach. Will continue to monitor.
[2019-08-14 20:00] VITALS: BP 133/89
[2019-08-14] MEDS ORDERED: Vancomycin 750mg/NS 275ml IVPB SCH ×2 (20:00)
[2019-08-14] MEDS ORDERED: Tubing IV Secondary IV ONE (20:55)
[2019-08-14] MEDS ORDERED: NS 275ml ONE (20:55)
[2019-08-14] MEDS: Doxycycline Monohydrate 100mg ORAL SCH (21:43)
[2019-08-14] MEDS: Tamsulosin 0.4mg cap ORAL SCH (21:44)
[2019-08-15] VITALS: BP 140/98
--- NOTE | 2019-08-15 01:00 | Consultation ---
DATE OF CONSULTATION: 08/14/2019 INFECTIOUS DISEASE CONSULTATION CONSULTING PHYSICIAN: Joshua Olivares MD ATTENDING PHYSICIAN: Ivon Russ MD REFERRING PHYSICIAN: Chance Brand MD REASON FOR CONSULTATION: Shortness of breath and pneumonia. CHIEF COMPLAINT: Patient's chief complaint coming in to the hospital is shortness of breath, pneumonia. HISTORY OF PRESENT ILLNESS: This is a very pleasant 69-year-old male who comes from the doctor's office for shortness of breath. Patient has had it over the last few days and has had a dry cough. Patient presents to [facility] with shortness of breath and imaging showed that he had bilateral infiltrates. Patient is in isolation currently for COVID-19 virus infection with concurrent pneumonia. Infectious Disease consultation is requested for antibiotic management. Patient was on vanco and Zosyn. I am going to place patient on Rocephin and doxycycline to cover for community-acquired pneumonia until testing for COVID-19 virus is back. Currently, patient's respiratory status is somewhat stable. No fevers. CT scan imaging was noted. MAR was noted. Orders were noted. Notes and records reviewed. REVIEW OF SYSTEMS: CONSTITUTIONAL: Patient has no fever, chills, or night sweats. HEAD AND NECK: No head pain, neck pain, neck stiffness, or headache. CARDIAC: No chest pain or palpitations. GASTROINTESTINAL: No nausea, vomiting, abdominal pain, or diarrhea. GENITOURINARY: No dysuria or frequency. PULMONARY: He has shortness of breath and dry cough. No secretions or hemoptysis. SKIN: No rash. EXTREMITIES: No extremity pain. NEUROLOGIC: No seizures. Generalized fatigue. No focal weakness. PAST MEDICAL HISTORY: The patient has a past medical history of hypertension. No history of diabetes mentioned. Other records show he has history of possible hypertension. His blood pressure has been elevated. It has been as high as 186/117, 195/111. Again, hypertension, but no history of diabetes or other medical problems. ALLERGIES: No known drug allergies. No antibiotic allergies. SOCIAL HISTORY: Negative for smoking, alcohol, or drug abuse. FAMILY HISTORY: Noncontributory. Negative for tuberculosis or cancer. MEDICATIONS: Upon reviewing the MAR, he is on following medications. He is on Flomax. He was on vanco, Zosyn. Now, he is on doxycycline, Rocephin. He is on Ativan, Lasix, Coreg, Colace, albuterol, acetaminophen, magnesium hydroxide, Zofran, temazepam, diphenhydramine. Outside medications noted and reconciliated. He was looks like on propranolol as an outpatient setting. PHYSICAL EXAMINATION: VITAL SIGNS: Temperature is 98.0, pulse rate 98, respiratory rate 20, blood pressure 115/79, saturation 93% to 94% on 2 liters. GENERAL: Alert, responsive. No distress. HEAD AND NECK: Oral exam, no thrush. Eye exam, no icterus. Normocephalic. Neck is supple. No JVD. HEART: Regular. No gallop or murmur. No friction rub. ABDOMEN: Soft. Positive bowel sounds. Nontender. LUNGS: Few bilateral rhonchi and rales. SKIN: No rash. No dermatitis. MUSCULOSKELETAL: No effusion or septic arthritis. PERIPHERAL VASCULAR: No gangrene. Legs without cellulitis. EXTREMITIES: No cyanosis. GENITOURINARY: No Pillai. No CVA tenderness. LINE SITES: Without phlebitis. NEUROLOGIC: Intact. Alert, oriented. LABORATORY DATA: White count 9.7, hemoglobin 14.9, monocytes are high, lymphocytes are not low. Creatinine is 1.4. UA negative. IMAGING STUDIES: Chest x-ray shows congestion and bilateral alveolar opacities suggestive of bilateral infiltrates. CT scan of the chest was done, which showed no evidence of pulmonary embolism. It did show bilateral infiltrates and effusions. COVID-19 testing is pending. ASSESSMENT AND PLAN: 1. Patient comes in with shortness of breath and cough with bilateral infiltrates. He currently does not have any fevers. Patient could have COVID-19 virus infection with concurrent pneumonia. Rule out community-acquired pneumonia. Patient comes from a community setting and does sound like it would be other type of pneumonia. Continue Rocephin and doxycycline for community-acquired pneumonia including Streptococcus pneumoniae coverage and atypical coverage. Azithromycin has drug interactions at this time with the medications he is on and I will not use this. Continue Rocephin and doxycycline for community-acquired pneumonia. Check Legionella, mycoplasma, chest x-ray, and labs. Await COVID-19 virus testing. No indication for any treatment for COVID-19 virus infection at this time since he is clinically otherwise stable. 2. COVID-19 virus isolation until testing is back for COVID-19 virus infection. 3. Hypertension. 4. Blood pressure treatment per Cardiology. 5. He also came in with chest pain. 6. No known drug allergies. 7. Social history is negative. 8. Family history is noncontributory. 9. MAR was noted. 10. Case discussed with RN. 11. Continue treatment per primary consultants. Joshua Olivares M.D. DR: HERNAN JOB#: [id number] CC:
[2019-08-15 04:00] VITALS: BP 140/99
--- NOTE | 2019-08-15 04:29 | NUR ---
NURSE NOTES: Patient is asleep lying semi-barahona's; resting comfortably. No signs of acute distress or pain noted at this time. On 2L nasal cannula.
[2019-08-15 06:52] LABS: BASOPHILS % (AUTO) 1.3 % (0.0-2.0); EOSINOPHILS % (AUTO) 3.6 % (0.0-3.0); HEMATOCRIT 42.8 % (42.0-52.0); LYMPHOCYTES % (AUTO) 34.1 % (20.0-45.0); MEAN CORPUSCULAR VOLUME 90 FL (80-99); MONOCYTES % (AUTO) 10.7 % (1.0-10.0); NEUTROPHILS % (AUTO) 50.3 % (45.0-75.0); PLATELET COUNT 270 K/UL (150-450); RED BLOOD COUNT 4.76 M/UL (4.70-6.10); RED CELL DISTRIBUTION WIDTH 11.7 % (11.6-14.8); WHITE BLOOD COUNT 8.7 K/UL (4.8-10.8)
--- NOTE | 2019-08-15 07:21 | NUR ---
HAND-OFF: Report given to MARTA Douglas. Patient is awake lying semi-barahona's; resting comfortably. In stable condition.
[2019-08-15 07:39] LABS: ALANINE AMINOTRANSFERASE 16 U/L (12-78); ALBUMIN 2.6 G/DL (3.4-5.0); ALBUMIN/GLOBULIN RATIO 0.6 (1.0-2.7); ALKALINE PHOSPHATASE 77 U/L (46-116); ANION GAP 9 mmol/L (5-15); ASPARTATE AMINO TRANSFERASE 22 U/L (15-37); BILIRUBIN,TOTAL 0.9 MG/DL (0.2-1.0); BLOOD UREA NITROGEN 21 mg/dL (7-18); CALCIUM 8.9 MG/DL (8.5-10.1); CARBON DIOXIDE 27 MMOL/L (21-32); CHLORIDE 102 MMOL/L (98-107); CREATININE 1.3 MG/DL (0.55-1.30); POTASSIUM 4.1 MMOL/L (3.5-5.1); SODIUM 138 MMOL/L (136-145)
[2019-08-15 08:00] VITALS: BP 146/96
[2019-08-15] MEDS: Docusate 100mg cap ORAL SCH ×2 (08:46→20:46)
[2019-08-15] MEDS: Doxycycline Monohydrate 100mg ORAL SCH ×2 (08:47→20:47)
[2019-08-15] MEDS: Heparin 5000 units/ml inj SUBQ SCH ×2 (08:47→20:51)
--- NOTE | 2019-08-15 09:52 | Pulmonology Progress Note ---
Subjective Interval Events: None new Constitutional: Reports: no symptoms HEENT: Repors: no symptoms Respiratory: Reports: no symptoms Cardiovascular: Reports: no symptoms Gastrointestinal/Abdominal: Reports: no symptoms Genitourinary: Reports: no symptoms Allergies: Coded Allergies: No Known Allergies (Unverified , 08/13/19) Objective Last 24 Hour Vital Signs Date Time Temp Pulse Resp B/P (MAP) Pulse Ox O2 Delivery O2 Flow Rate FiO2 08/15/19 08:46 112 146/96 08/15/19 08:21 Room Air 08/15/19 08:00 97.7 112 18 146/96 (113) 94 08/15/19 08:00 112 08/15/19 04:00 97.5 109 16 140/99 (113) 96 08/15/19 04:00 105 08/15/19 00:00 97.7 106 18 140/98 (112) 95 08/15/19 00:00 108 08/14/19 21:44 103 133/89 08/14/19 21:00 Room Air 08/14/19 20:00 97.6 103 16 133/89 (104) 94 08/14/19 20:00 99 08/14/19 16:00 98.0 98 20 115/79 (91) 93 08/14/19 16:00 94 08/14/19 12:00 97.8 107 20 131/90 (104) 94 08/14/19 12:00 107 Intake and Output 08/14/19 08/15/19 19:00 07:00 Intake Total 300 ml 290 ml Output Total 800 ml Balance 300 ml -510 ml Intake Oral 300 ml 240 ml IV Total 50 ml Output Urine Total 800 ml # Voids 3 2 General Appearance: no acute distress HEENT: normocephalic Respiratory: chest wall non-tender, lungs clear Cardiovascular: normal peripheral pulses, normal rate Abdomen: normal bowel sounds Microbiology Date/Time Source Procedure Growth Status 08/13/19 12:46 Blood Blood Culture - Preliminary NO GROWTH AFTER 24 HOURS Resulted 08/13/19 12:25 Blood Blood Culture - Preliminary NO GROWTH AFTER 24 HOURS Resulted Laboratory Tests 08/14/19 10:50: Urine Color Pale yellow, Urine Appearance Clear, Urine pH 7, Urine Specific [place] 1.005, Urine Protein Negative, Urine Glucose (UA) Negative, Urine Ketones Negative, Urine Blood Negative, Urine Nitrite Negative, Urine Bilirubin Negative, Urine Urobilinogen Normal, Urine Leukocyte Esterase Negative, Urine Random Sodium 107, Urine Creatinine < 5.0L 08/14/19 20:19: Urine Legionella Antigen [Pending] 08/15/19 05:42: White Blood Count 8.7, Red Blood Count 4.76, Hemoglobin 15.0, Hematocrit 42.8, Mean Corpuscular Volume 90, Mean Corpuscular Hemoglobin 31.5H, Mean Corpuscular Hemoglobin Concent 35.1, Red Cell Distribution Width 11.7, Platelet Count 270, Mean Platelet Volume 5.8L, Neutrophils (%) (Auto) 50.3, Lymphocytes (%) (Auto) 34.1, Monocytes (%) (Auto) 10.7H, Eosinophils (%) (Auto) 3.6H, Basophils (%) ( Auto) 1.3, Sodium Level 138, Potassium Level 4.1, Chloride Level 102, Carbon Dioxide Level 27, Anion Gap 9, Blood Urea Nitrogen 21H, Creatinine 1.3, Estimat Glomerular Filtration Rate 54.7, Glucose Level 94, Calcium Level 8.9, Total Bilirubin 0.9, Aspartate Amino Transf (AST/SGOT) 22, Alanine Aminotransferase ( ALT/SGPT) 16, Alkaline Phosphatase 77, Troponin I 0.413H, Pro-B-Type Natriuretic Peptide 62746T, Total Protein 7.3, Albumin 2.6L, Globulin 4.7, Albumin/Globulin Ratio 0.6L Current Medications Medications (Trade) Dose Ordered Sig/Jaspreet Route PRN Reason Start Time Stop Time Status Last Admin Dose Admin Acetaminophen (Tylenol) 650 mg Q4H PRN ORAL Mild Pain (Pain Scale 1-3) 08/13/19 18:15 09/12/19 18:14 Al Hydroxide/Mg Hydroxide (Mylanta II) 30 ml Q6H PRN ORAL dyspepsia 08/13/19 18:15 09/12/19 18:14 Albuterol/ Ipratropium (Albuterol/ Ipratropium) 3 ml Q6H PRN HHN Shortness of Breath 08/13/19 18:15 08/18/19 18:14 Carvedilol (Coreg) 3.125 mg EVERY 12 HOURS ORAL 08/14/19 09:00 09/13/19 08:59 08/15/19 08:46 Ceftriaxone Sodium 1 gm/ Dextrose 50 ml @ 100 mls/hr Q24H IVPB 08/14/19 18:30 08/21/19 18:29 08/14/19 18:42 Dextrose (Dextrose 50%) 25 ml Q30M PRN IV Hypoglycemia 08/13/19 18:15 11/11/19 18:14 Dextrose (Dextrose 50%) 50 ml Q30M PRN IV Hypoglycemia 08/13/19 18:15 11/11/19 18:14 Diphenhydramine HCl (Benadryl) 25 mg Q6H PRN ORAL Itching/Pruritis 08/13/19 18:15 09/12/19 18:14 Docusate Sodium (Colace) 100 mg EVERY 12 HOURS ORAL 08/13/19 21:00 09/12/19 20:59 08/15/19 08:46 Doxycycline Monohydrate (Doxycycline Monohydrate) 100 mg EVERY 12 HOURS ORAL 08/14/19 21:00 08/21/19 20:59 08/15/19 08:47 Furosemide (Lasix) 40 mg DAILY IV 08/14/19 09:00 09/13/19 08:59 08/15/19 08:46 Heparin Sodium (Porcine) (Heparin 5000 units/ml) 5,000 units EVERY 12 HOURS SUBQ 08/13/19 21:00 09/27/19 20:59 08/15/19 08:47 Iohexol (Omnipaque 350 100ml) 100 ml NOW PRN INJ Radiology Procedure 08/13/19 13:45 08/15/19 13:41 Lorazepam (Ativan) 2 mg TIDPRN PRN ORAL For Anxiety 08/14/19 09:45 08/21/19 09:44 08/14/19 13:48 Magnesium Hydroxide (Mom) 30 ml HSPRN PRN ORAL Constipation 08/13/19 18:15 09/12/19 18:14 Ondansetron HCl (Zofran) 4 mg Q6H PRN IVP Nausea & Vomiting 08/13/19 18:15 09/12/19 18:14 Tamsulosin HCl (Flomax) 0.4 mg BEDTIME ORAL 08/14/19 21:00 09/13/19 20:59 08/14/19 21:44 Temazepam (Restoril) 15 mg HSPRN PRN ORAL Insomnia 08/13/19 18:15 08/20/19 18:14 08/14/19 21:43 Assessment/Plan Assessment/Plan IMPRESSION: 1. Liver cirrhosis. 2. Cholelithiasis. 3. Bilateral pulmonary infiltrates. 4. Pneumonia. DISCUSSION: Await COVID-19 results. Continue isolation. I will follow carefully. Currently, he is comfortable on room air. I will follow carefully. Tommie Mena M.D. Tommie Mena MD August 15, 2019 09:52
--- NOTE | 2019-08-15 10:34 | Nephrology Progress Note ---
Assessment/Plan Plan #LUPIS- monitor for contrast induced nephropathy #SOB- r/o COVID, r/o CHF- given elevated BNP #Elevated troponin #Cirrhosis on imaging #HTN #HLD #BPH - continue lasix 40 IV daukt - monitor for ISAI - r/o covid - continue ceftriaxone and doxy per ID - 2d echo -> EF 30% - diuresis per cardiology - monitor BMP, mag and phos - continue coreg 3.125mg BID - continue flomax 0.4mg daily - avoid nephrotoxins - strict I&Os - daily weights Time spent 65 min, > 50% on care coodination and counseling Subjective ROS Limited/Unobtainable: No Constitutional: Denies: no symptoms, chills, diaphoresis, fever, malaise, weakness, other HEENT: Denies: no symptoms, eye pain, blurred vision, tearing, double vision, ear pain, ear discharge, nose pain, nose congestion, throat pain, throat swelling, mouth pain, mouth swelling, other Genitourinary: Denies: no symptoms, burning, discharge, frequency, flank pain, hematuria, incontinence, pain, urgency, other Neurologic/Psychiatric: Denies: no symptoms, anxiety, depressed, emotional problems, headache, numbness, paresthesia, pre-existing deficit, seizure, tingling, tremors, weakness, other Subjective Cr stable Echo with EF close to 30% on lasix 40 IV daily Objective Objective Last 24 Hour Vital Signs Date Time Temp Pulse Resp B/P (MAP) Pulse Ox O2 Delivery O2 Flow Rate FiO2 08/15/19 08:46 112 146/96 08/15/19 08:21 Room Air 08/15/19 08:00 97.7 112 18 146/96 (113) 94 08/15/19 08:00 112 08/15/19 04:00 97.5 109 16 140/99 (113) 96 08/15/19 04:00 105 08/15/19 00:00 97.7 106 18 140/98 (112) 95 08/15/19 00:00 108 08/14/19 21:44 103 133/89 08/14/19 21:00 Room Air 08/14/19 20:00 97.6 103 16 133/89 (104) 94 08/14/19 20:00 99 08/14/19 16:00 98.0 98 20 115/79 (91) 93 08/14/19 16:00 94 08/14/19 12:00 97.8 107 20 131/90 (104) 94 08/14/19 12:00 107 Intake and Output 08/14/19 08/15/19 19:00 07:00 Intake Total 300 ml 290 ml Output Total 800 ml Balance 300 ml -510 ml Intake Oral 300 ml 240 ml IV Total 50 ml Output Urine Total 800 ml # Voids 3 2 Laboratory Tests 08/14/19 10:50: Urine Color Pale yellow, Urine Appearance Clear, Urine pH 7, Urine Specific [place] 1.005, Urine Protein Negative, Urine Glucose (UA) Negative, Urine Ketones Negative, Urine Blood Negative, Urine Nitrite Negative, Urine Bilirubin Negative, Urine Urobilinogen Normal, Urine Leukocyte Esterase Negative, Urine Random Sodium 107, Urine Creatinine < 5.0L 08/14/19 20:19: Urine Legionella Antigen [Pending] 08/15/19 05:42: White Blood Count 8.7, Red Blood Count 4.76, Hemoglobin 15.0, Hematocrit 42.8, Mean Corpuscular Volume 90, Mean Corpuscular Hemoglobin 31.5H, Mean Corpuscular Hemoglobin Concent 35.1, Red Cell Distribution Width 11.7, Platelet Count 270, Mean Platelet Volume 5.8L, Neutrophils (%) (Auto) 50.3, Lymphocytes (%) (Auto) 34.1, Monocytes (%) (Auto) 10.7H, Eosinophils (%) (Auto) 3.6H, Basophils (%) ( Auto) 1.3, Sodium Level 138, Potassium Level 4.1, Chloride Level 102, Carbon Dioxide Level 27, Anion Gap 9, Blood Urea Nitrogen 21H, Creatinine 1.3, Estimat Glomerular Filtration Rate 54.7, Glucose Level 94, Calcium Level 8.9, Total Bilirubin 0.9, Aspartate Amino Transf (AST/SGOT) 22, Alanine Aminotransferase ( ALT/SGPT) 16, Alkaline Phosphatase 77, Troponin I 0.413H, Pro-B-Type Natriuretic Peptide 58046E, Total Protein 7.3, Albumin 2.6L, Globulin 4.7, Albumin/Globulin Ratio 0.6L Height (Feet): 5 Height (Inches): 4.00 Weight (Pounds): 165 Objective General Appearance: WD/WN, no apparent distress Lines, tubes and drains: peripheral HEENT: normocephalic, atraumatic Neck: non-tender, normal alignment Respiratory/Chest: chest wall non-tender, rhonchi - bilaterally Cardiovascular/Chest: normal peripheral pulses, normal rate, regular rhythm Abdomen: normal bowel sounds, non tender, soft, no mass Extremities: non-tender, normal inspection, no calf tenderness Skin Exam: no diaphoresis Neurologic: alert, oriented x 3, responsive Musculoskeletal: normal muscle bulk Brandi Real M.D. August 15, 2019 10:34
[2019-08-15 12:00] VITALS: BP 127/87
[2019-08-15] MEDS: LORazepam 1mg tab ORAL PRN (12:13)
--- NOTE | 2019-08-15 13:23 | NUR ---
CASE MANAGEMENT:REVIEW 08/15/19 SI: BILATERAL PNEUMONIA. SUSPECTED COVID 19 CHOLELITHIASIS. LIVER CIRRHOSIS. 97.7 112 18 146/96 94% ON RA BUN+21 BNP+49140 IS: IV ROCEPHIN Q24 DOXYCYCLINE PO Q12 FLOMAX PO QHS IV LASIX QD COREG PO Q12 HEPARIN SQ Q12 : TELEMETRY STATUS DCP: PATIENT IS FROM HOME PLAN: F/U ON PENDING COVID 19 RESULTS RETURN HOME ONCE STABLE
--- NOTE | 2019-08-15 13:31 | NUR ---
DISCHARGE PLANNING PATIENT IS FROM HOME AND WILL RETURN HOME ONCE STABLE FOR DISCHARGE. NOT READY FOR DISCHARGE TODAY ~ COVID 19 RESULTS ARE PENDING PATIENT REMAIN TACHYCARDIC
--- NOTE | 2019-08-15 14:15 | General Progress Note ---
Subjective Date patient seen: August 15, 2019 Time patient seen: 09:00 ROS Limited/Unobtainable: No Constitutional: Denies: chills, fever Cardiovascular: Denies: chest pain Respiratory: Denies: cough Gastrointestinal/Abdominal: Denies: abdomen distended, abdominal pain Genitourinary: Denies: frequency Neurologic/Psychiatric: Reports: headache Allergies: Coded Allergies: No Known Allergies (Unverified , 08/13/19) Subjective Follow up for acute on chronic systolic CHF, type II NSTEMI, LUPIS, cardiorenal syndrome Doing better today, renal function improved. Objective Last 24 Hour Vital Signs Date Time Temp Pulse Resp B/P (MAP) Pulse Ox O2 Delivery O2 Flow Rate FiO2 08/15/19 12:00 106 08/15/19 12:00 97.5 106 20 127/87 (100) 94 08/15/19 08:46 112 146/96 08/15/19 08:21 Room Air 08/15/19 08:00 97.7 112 18 146/96 (113) 94 08/15/19 08:00 112 08/15/19 04:00 97.5 109 16 140/99 (113) 96 08/15/19 04:00 105 08/15/19 00:00 97.7 106 18 140/98 (112) 95 08/15/19 00:00 108 08/14/19 21:44 103 133/89 08/14/19 21:00 Room Air 08/14/19 20:00 97.6 103 16 133/89 (104) 94 08/14/19 20:00 99 08/14/19 16:00 98.0 98 20 115/79 (91) 93 08/14/19 16:00 94 Intake and Output 08/14/19 08/15/19 19:00 07:00 Intake Total 300 ml 290 ml Output Total 800 ml Balance 300 ml -510 ml Intake Oral 300 ml 240 ml IV Total 50 ml Output Urine Total 800 ml # Voids 3 2 Laboratory Tests 08/14/19 20:19: Urine Legionella Antigen [Pending] 08/15/19 05:42: White Blood Count 8.7, Red Blood Count 4.76, Hemoglobin 15.0, Hematocrit 42.8, Mean Corpuscular Volume 90, Mean Corpuscular Hemoglobin 31.5H, Mean Corpuscular Hemoglobin Concent 35.1, Red Cell Distribution Width 11.7, Platelet Count 270, Mean Platelet Volume 5.8L, Neutrophils (%) (Auto) 50.3, Lymphocytes (%) (Auto) 34.1, Monocytes (%) (Auto) 10.7H, Eosinophils (%) (Auto) 3.6H, Basophils (%) ( Auto) 1.3, Sodium Level 138, Potassium Level 4.1, Chloride Level 102, Carbon Dioxide Level 27, Anion Gap 9, Blood Urea Nitrogen 21H, Creatinine 1.3, Estimat Glomerular Filtration Rate 54.7, Glucose Level 94, Calcium Level 8.9, Total Bilirubin 0.9, Aspartate Amino Transf (AST/SGOT) 22, Alanine Aminotransferase ( ALT/SGPT) 16, Alkaline Phosphatase 77, Troponin I 0.413H, Pro-B-Type Natriuretic Peptide 53236J, Total Protein 7.3, Albumin 2.6L, Globulin 4.7, Albumin/Globulin Ratio 0.6L Height (Feet): 5 Height (Inches): 4.00 Weight (Pounds): 165 Chance Brand MD August 15, 2019 14:15
--- NOTE | 2019-08-15 14:27 | History and Physical ---
History of Present Illness General Date patient seen: August 14, 2019 Time patient seen: 09:00 Reason for Hospitalization: Dyspnea/Respdistress Present Illness HPI 69-year-old male with BPH, prior alcoholism, reportsdly quit 13 years ago who comes from the doctor's office for shortness of breath. Patient has had it over the last few days and has had a dry cough. Patient presents to [facility] with shortness of breath and imaging showed that he had bilateral infiltrates and effusions. Patient started on broad spectrum antibiotics and referred for admission. Denies any significant chest pain, fever, chills, sputum production. Social Hx: Former alcoholism Family Hx: No premature CAD Allergies: Coded Allergies: No Known Allergies (Unverified , 08/13/19) COVID-19 Screening Contact w/high risk pt: No Recent Travel to affected area: No Experienced COVID-19 symptoms?: Yes COVID-19 symptoms experienced: Shortness of Breath Medication History Scheduled Propranolol Hcl* (Inderal La*), 60 MG ORAL DAILY, (Reported) Patient History Limited by: language barrier Healthcare decision maker Resuscitation status Advanced Directive on File Review of Systems Constitutional: Denies: chills, fever Eye: Denies: eye pain Respiratory: Reports: cough, shortness of breath Cardiovascular: Denies: chest pain, edema Gastrointestinal: Denies: abdominal pain, constipation Genitourinary: Reports: frequency; Denies: dysuria Musculoskeletal: Denies: back pain Physical Exam HEENT: normocephalic, atraumatic Neck: normal alignment, normal inspection Respiratory/Chest: lungs clear, normal breath sounds Cardiovascular/Chest: normal rate, regular rhythm Abdomen: non tender, soft Last 24 Hour Vital Signs Date Time Temp Pulse Resp B/P (MAP) Pulse Ox O2 Delivery O2 Flow Rate FiO2 08/15/19 12:00 106 08/15/19 12:00 97.5 106 20 127/87 (100) 94 08/15/19 08:46 112 146/96 08/15/19 08:21 Room Air 08/15/19 08:00 97.7 112 18 146/96 (113) 94 08/15/19 08:00 112 08/15/19 04:00 97.5 109 16 140/99 (113) 96 08/15/19 04:00 105 08/15/19 00:00 97.7 106 18 140/98 (112) 95 08/15/19 00:00 108 08/14/19 21:44 103 133/89 08/14/19 21:00 Room Air 08/14/19 20:00 97.6 103 16 133/89 (104) 94 08/14/19 20:00 99 08/14/19 16:00 98.0 98 20 115/79 (91) 93 08/14/19 16:00 94 Intake and Output 08/14/19 08/15/19 19:00 07:00 Intake Total 300 ml 290 ml Output Total 800 ml Balance 300 ml -510 ml Intake Oral 300 ml 240 ml IV Total 50 ml Output Urine Total 800 ml # Voids 3 2 Laboratory Tests Test 08/14/19 20:19 08/15/19 05:42 Urine Legionella Antigen Pending White Blood Count 8.7 K/UL (4.8-10.8) Red Blood Count 4.76 M/UL (4.70-6.10) Hemoglobin 15.0 G/DL (14.2-18.0) Hematocrit 42.8 % (42.0-52.0) Mean Corpuscular Volume 90 FL (80-99) Mean Corpuscular Hemoglobin 31.5 PG (27.0-31.0) H Mean Corpuscular Hemoglobin Concent 35.1 G/DL (32.0-36.0) Red Cell Distribution Width 11.7 % (11.6-14.8) Platelet Count 270 K/UL (150-450) Mean Platelet Volume 5.8 FL (6.5-10.1) L Neutrophils (%) (Auto) 50.3 % (45.0-75.0) Lymphocytes (%) (Auto) 34.1 % (20.0-45.0) Monocytes (%) (Auto) 10.7 % (1.0-10.0) H Eosinophils (%) (Auto) 3.6 % (0.0-3.0) H Basophils (%) (Auto) 1.3 % (0.0-2.0) Sodium Level 138 MMOL/L (136-145) Potassium Level 4.1 MMOL/L (3.5-5.1) Chloride Level 102 MMOL/L (98-107) Carbon Dioxide Level 27 MMOL/L (21-32) Anion Gap 9 mmol/L (5-15) Blood Urea Nitrogen 21 mg/dL (7-18) H Creatinine 1.3 MG/DL (0.55-1.30) Estimat Glomerular Filtration Rate 54.7 mL/min (>60) Glucose Level 94 MG/DL (74-106) Calcium Level 8.9 MG/DL (8.5-10.1) Total Bilirubin 0.9 MG/DL (0.2-1.0) Aspartate Amino Transf (AST/SGOT) 22 U/L (15-37) Alanine Aminotransferase (ALT/SGPT) 16 U/L (12-78) Alkaline Phosphatase 77 U/L (46-116) Troponin I 0.413 ng/mL (0.000-0.056) Pro-B-Type Natriuretic Peptide 01071 pg/mL (0-125) H Total Protein 7.3 G/DL (6.4-8.2) Albumin 2.6 G/DL (3.4-5.0) L Globulin 4.7 g/dL Albumin/Globulin Ratio 0.6 (1.0-2.7) L Height (Feet): 5 Height (Inches): 4.00 Weight (Pounds): 165 Medications Current Medications Medications (Trade) Dose Ordered Sig/Jaspreet Route PRN Reason Start Time Stop Time Status Last Admin Dose Admin Acetaminophen (Tylenol) 650 mg Q4H PRN ORAL Mild Pain (Pain Scale 1-3) 08/13/19 18:15 09/12/19 18:14 Al Hydroxide/Mg Hydroxide (Mylanta II) 30 ml Q6H PRN ORAL dyspepsia 08/13/19 18:15 09/12/19 18:14 Albuterol/ Ipratropium (Albuterol/ Ipratropium) 3 ml Q6H PRN HHN Shortness of Breath 08/13/19 18:15 08/18/19 18:14 Carvedilol (Coreg) 3.125 mg EVERY 12 HOURS ORAL 08/14/19 09:00 09/13/19 08:59 08/15/19 08:46 Ceftriaxone Sodium 1 gm/ Dextrose 50 ml @ 100 mls/hr Q24H IVPB 08/14/19 18:30 08/21/19 18:29 08/14/19 18:42 Dextrose (Dextrose 50%) 25 ml Q30M PRN IV Hypoglycemia 08/13/19 18:15 11/11/19 18:14 Dextrose (Dextrose 50%) 50 ml Q30M PRN IV Hypoglycemia 08/13/19 18:15 11/11/19 18:14 Diphenhydramine HCl (Benadryl) 25 mg Q6H PRN ORAL Itching/Pruritis 08/13/19 18:15 09/12/19 18:14 Docusate Sodium (Colace) 100 mg EVERY 12 HOURS ORAL 08/13/19 21:00 09/12/19 20:59 08/15/19 08:46 Doxycycline Monohydrate (Doxycycline Monohydrate) 100 mg EVERY 12 HOURS ORAL 08/14/19 21:00 08/21/19 20:59 08/15/19 08:47 Furosemide (Lasix) 40 mg DAILY IV 08/14/19 09:00 09/13/19 08:59 08/15/19 08:46 Heparin Sodium (Porcine) (Heparin 5000 units/ml) 5,000 units EVERY 12 HOURS SUBQ 08/13/19 21:00 09/27/19 20:59 08/15/19 08:47 Lorazepam (Ativan) 2 mg TIDPRN PRN ORAL For Anxiety 08/14/19 09:45 08/21/19 09:44 08/15/19 12:13 Magnesium Hydroxide (Mom) 30 ml HSPRN PRN ORAL Constipation 08/13/19 18:15 09/12/19 18:14 Ondansetron HCl (Zofran) 4 mg Q6H PRN IVP Nausea & Vomiting 08/13/19 18:15 09/12/19 18:14 Tamsulosin HCl (Flomax) 0.4 mg BEDTIME ORAL 08/14/19 21:00 09/13/19 20:59 08/14/19 21:44 Temazepam (Restoril) 15 mg HSPRN PRN ORAL Insomnia 08/13/19 18:15 08/20/19 18:14 08/14/19 21:43 Assessment/Plan Assessment/Plan: 69 year old man with former history of alcoholism, BPH who presented with dyspnea and cough, found to have bilateral infiltrates and pleural effusions on CTA chest. #Acute on chronic systolic CHF #Type II NSTEMI #HTN #HLD -admit to inpatient telemetry -check TTE -IV Lasix diuresis -I&O, daily weight -Cardiology eval #LUPIS, likely due to cardiorenal syndrome -monitor BMP with diuresis -Renal consult #History of alcoholism #Possible early cirrhosis based on imaging -Ativan prn for anxiety #BPH -Flomax I spent 71 minutes on this patient's case, and 36~ minutes was dedicated to counseling and/or care coordination with consulting MDs, PCP, RN Chance Brand MD August 15, 2019 14:27
--- NOTE | 2019-08-15 14:29 | General Progress Note ---
Assessment/Plan Assessment/Plan: 69 year old man with former history of alcoholism, BPH who presented with dyspnea and cough, found to have bilateral infiltrates and pleural effusions on CTA chest. #Acute on chronic systolic CHF #Type II NSTEMI #HTN #HLD -continue telemetry -check TTE -IV Lasix diuresis -I&O, daily weight -Cardiology following #LUPIS, likely due to cardiorenal syndrome -monitor BMP with diuresis -Renal following #History of alcoholism #Possible early cirrhosis based on imaging -Ativan prn for anxiety #BPH -Flomax I spent 35 minutes on this patient's case, and 18 minutes was dedicated to counseling and/or care coordination with consulting MDs, RN Subjective Date patient seen: August 15, 2019 Time patient seen: 12:11 ROS Limited/Unobtainable: No Constitutional: Denies: chills, fever Cardiovascular: Denies: chest pain, edema Respiratory: Denies: cough, orthopnea Allergies: Coded Allergies: No Known Allergies (Unverified , 08/13/19) Subjective Follow up for acute on chronic systolic CHF, type II NSTEMI, LUPIS, cardiorenal syndrome Doing better today, renal function improved. Objective Last 24 Hour Vital Signs Date Time Temp Pulse Resp B/P (MAP) Pulse Ox O2 Delivery O2 Flow Rate FiO2 08/15/19 12:00 106 08/15/19 12:00 97.5 106 20 127/87 (100) 94 08/15/19 08:46 112 146/96 08/15/19 08:21 Room Air 08/15/19 08:00 97.7 112 18 146/96 (113) 94 08/15/19 08:00 112 08/15/19 04:00 97.5 109 16 140/99 (113) 96 08/15/19 04:00 105 08/15/19 00:00 97.7 106 18 140/98 (112) 95 08/15/19 00:00 108 08/14/19 21:44 103 133/89 08/14/19 21:00 Room Air 08/14/19 20:00 97.6 103 16 133/89 (104) 94 08/14/19 20:00 99 08/14/19 16:00 98.0 98 20 115/79 (91) 93 08/14/19 16:00 94 Intake and Output 08/14/19 08/15/19 19:00 07:00 Intake Total 300 ml 290 ml Output Total 800 ml Balance 300 ml -510 ml Intake Oral 300 ml 240 ml IV Total 50 ml Output Urine Total 800 ml # Voids 3 2 Laboratory Tests 08/14/19 20:19: Urine Legionella Antigen [Pending] 08/15/19 05:42: White Blood Count 8.7, Red Blood Count 4.76, Hemoglobin 15.0, Hematocrit 42.8, Mean Corpuscular Volume 90, Mean Corpuscular Hemoglobin 31.5H, Mean Corpuscular Hemoglobin Concent 35.1, Red Cell Distribution Width 11.7, Platelet Count 270, Mean Platelet Volume 5.8L, Neutrophils (%) (Auto) 50.3, Lymphocytes (%) (Auto) 34.1, Monocytes (%) (Auto) 10.7H, Eosinophils (%) (Auto) 3.6H, Basophils (%) ( Auto) 1.3, Sodium Level 138, Potassium Level 4.1, Chloride Level 102, Carbon Dioxide Level 27, Anion Gap 9, Blood Urea Nitrogen 21H, Creatinine 1.3, Estimat Glomerular Filtration Rate 54.7, Glucose Level 94, Calcium Level 8.9, Total Bilirubin 0.9, Aspartate Amino Transf (AST/SGOT) 22, Alanine Aminotransferase ( ALT/SGPT) 16, Alkaline Phosphatase 77, Troponin I 0.413H, Pro-B-Type Natriuretic Peptide 87960J, Total Protein 7.3, Albumin 2.6L, Globulin 4.7, Albumin/Globulin Ratio 0.6L Height (Feet): 5 Height (Inches): 4.00 Weight (Pounds): 165 General Appearance: alert Neck: normal alignment, supple Cardiovascular: normal rate, regular rhythm Respiratory/Chest: lungs clear, normal breath sounds, no respiratory distress, no accessory muscle use Abdomen: non tender, soft Chance Brand MD August 15, 2019 14:29
--- NOTE | 2019-08-15 15:53 | Cardiac Electrophysiology PN ---
Assessment/Plan Assessment/Plan 1. Chest pain. The patient's troponin is mildly elevated at 0.1> 0.1> 0.4. Chest CT angiogram showed no evidence of pulmonary embolism CT was also suggestive of cirrhosis and gallstones. The patient also has mild renal failure, creatinine 1.4. Echocardiogram showed EF 25% 2. CHF [place] EF 25[place] [address]. Change Lopressor to Cpreg and add Lisinipril, LAsix and LAdactone Likely will need cardiac cath to R/O CAD . 3. Hypertension. Maximize CHF meds first 4. Renal failure. Resolving Cr 1.3 Subjective Subjective Alert in NAD. Troponin slightly high Objective Last 24 Hour Vital Signs Date Time Temp Pulse Resp B/P (MAP) Pulse Ox O2 Delivery O2 Flow Rate FiO2 08/15/19 12:00 106 08/15/19 12:00 97.5 106 20 127/87 (100) 94 08/15/19 08:46 112 146/96 08/15/19 08:21 Room Air 08/15/19 08:00 97.7 112 18 146/96 (113) 94 08/15/19 08:00 112 08/15/19 04:00 97.5 109 16 140/99 (113) 96 08/15/19 04:00 105 08/15/19 00:00 97.7 106 18 140/98 (112) 95 08/15/19 00:00 108 08/14/19 21:44 103 133/89 08/14/19 21:00 Room Air 08/14/19 20:00 97.6 103 16 133/89 (104) 94 08/14/19 20:00 99 08/14/19 16:00 98.0 98 20 115/79 (91) 93 08/14/19 16:00 94 Intake and Output 08/14/19 08/15/19 19:00 07:00 Intake Total 300 ml 290 ml Output Total 800 ml Balance 300 ml -510 ml Intake Oral 300 ml 240 ml IV Total 50 ml Output Urine Total 800 ml # Voids 3 2 Laboratory Tests Test 08/14/19 20:19 08/15/19 05:42 Urine Legionella Antigen Pending White Blood Count 8.7 K/UL (4.8-10.8) Red Blood Count 4.76 M/UL (4.70-6.10) Hemoglobin 15.0 G/DL (14.2-18.0) Hematocrit 42.8 % (42.0-52.0) Mean Corpuscular Volume 90 FL (80-99) Mean Corpuscular Hemoglobin 31.5 PG (27.0-31.0) H Mean Corpuscular Hemoglobin Concent 35.1 G/DL (32.0-36.0) Red Cell Distribution Width 11.7 % (11.6-14.8) Platelet Count 270 K/UL (150-450) Mean Platelet Volume 5.8 FL (6.5-10.1) L Neutrophils (%) (Auto) 50.3 % (45.0-75.0) Lymphocytes (%) (Auto) 34.1 % (20.0-45.0) Monocytes (%) (Auto) 10.7 % (1.0-10.0) H Eosinophils (%) (Auto) 3.6 % (0.0-3.0) H Basophils (%) (Auto) 1.3 % (0.0-2.0) Sodium Level 138 MMOL/L (136-145) Potassium Level 4.1 MMOL/L (3.5-5.1) Chloride Level 102 MMOL/L (98-107) Carbon Dioxide Level 27 MMOL/L (21-32) Anion Gap 9 mmol/L (5-15) Blood Urea Nitrogen 21 mg/dL (7-18) H Creatinine 1.3 MG/DL (0.55-1.30) Estimat Glomerular Filtration Rate 54.7 mL/min (>60) Glucose Level 94 MG/DL (74-106) Calcium Level 8.9 MG/DL (8.5-10.1) Total Bilirubin 0.9 MG/DL (0.2-1.0) Aspartate Amino Transf (AST/SGOT) 22 U/L (15-37) Alanine Aminotransferase (ALT/SGPT) 16 U/L (12-78) Alkaline Phosphatase 77 U/L (46-116) Troponin I 0.413 ng/mL (0.000-0.056) Pro-B-Type Natriuretic Peptide 00940 pg/mL (0-125) H Total Protein 7.3 G/DL (6.4-8.2) Albumin 2.6 G/DL (3.4-5.0) L Globulin 4.7 g/dL Albumin/Globulin Ratio 0.6 (1.0-2.7) L Microbiology Date/Time Source Procedure Growth Status 08/13/19 12:46 Blood Blood Culture - Preliminary NO GROWTH AFTER 24 HOURS Resulted 08/13/19 12:25 Blood Blood Culture - Preliminary NO GROWTH AFTER 24 HOURS Resulted Objective HEAD AND NECK: Showed no JVD. LUNGS: Clear. CARDIOVASCULAR: Regular S1 and S2 with no gallop or murmur. ABDOMEN: Soft. EXTREMITIES: No pitting edema. Cain Arteaga MD August 15, 2019 15:53
[2019-08-15 16:00] VITALS: BP 122/76
[2019-08-15] MEDS: cefTRIAXone 1 GM in D5W 50 ML IVPB SCH (18:01)
[2019-08-15 20:00] VITALS: BP 126/86
--- NOTE | 2019-08-15 20:00 | NUR ---
NURSE NOTES: RECEIVED PATIENT LYING IN BED, AWAKE, ALERT/ORIENTED X4, SYRIAC SPEAKING, ABLE TO MAKE SIMPLE NEEDS KNOWN IN [place], DENIES PAIN. 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 IV INTACT TO RIGHT FOREARM/GAUGE 22, SALINE LOCK. NO COMPLAINTS OF GI DISCOMFORT, NO N/V/D, BATHROOM PRIVILEGES/AMBULATORY. SIDE RAILS UP X2, BED IN LOWEST POSITION FOR SAFETY, ENCOURAGED PATIENT TO UTILIZE CALL LIGHT FOR ASSISTANCE, VERBALIZED UNDERSTANDING. CONTINUE WITH CURRENT PLAN OF CARE. NAD.
[2019-08-15] MEDS: Tamsulosin 0.4mg cap ORAL SCH (20:46)
[2019-08-16] VITALS (7 sets, daily range): BP systolic 118–139; BP diastolic 72–94
[2019-08-16 06:34] LABS: ANION GAP 8 mmol/L (5-15); BLOOD UREA NITROGEN 15 mg/dL (7-18); CALCIUM 8.6 MG/DL (8.5-10.1); CARBON DIOXIDE 27 MMOL/L (21-32); CHLORIDE 101 MMOL/L (98-107); CREATININE 1.1 MG/DL (0.55-1.30); SODIUM 136 MMOL/L (136-145)
--- NOTE | 2019-08-16 06:48 | NUR ---
NURSE NOTES: RESTED WELL, NO SIGNIFICANT CHANGE OF CONDITION NOTED THROUGHOUT THE NIGHT. SAFETY MAINTAINED. NAD.
--- NOTE | 2019-08-16 07:30 | NUR ---
HAND-OFF: Report given to MARTA CORDON.
[2019-08-16] MEDS: LORazepam 1mg tab ORAL PRN ×2 (07:47→14:31)
[2019-08-16] MEDS: Doxycycline Monohydrate 100mg ORAL SCH ×2 (07:48→21:31)
[2019-08-16] MEDS: Docusate 100mg cap ORAL SCH ×2 (07:48→21:31)
--- NOTE | 2019-08-16 08:35 | Cardiac Electrophysiology PN ---
Assessment/Plan Assessment/Plan 1. Chest pain. The patient's troponin is mildly elevated at 0.1> 0.1> 0.4. Chest CT angiogram showed no evidence of pulmonary embolism Had mild renal failure, creatinine 1.4 but now Cr is 1 and troponin still high. Likely due to CHF as EF 25%. Need to R/O CAD 2. CHF with EF 25% [place] [address]. On Coreg, Lisinipril, Lasix and Aldactone Will transfer to [facility] for cardiac cath to R/O CAD after second Covid is negative . 3. Hypertension. Maximize CHF meds first 4. Renal failure. Resolved Cr 1.0 Subjective Subjective Alert in NAD. Troponin slightly high. No Cp or SOB in SR. Is very anxious. Covid negative x1 Objective Last 24 Hour Vital Signs Date Time Temp Pulse Resp B/P (MAP) Pulse Ox O2 Delivery O2 Flow Rate FiO2 08/16/19 08:22 Room Air 08/16/19 08:05 105 08/16/19 08:00 97.4 105 17 128/79 (95) 98 08/16/19 07:47 97 130/82 08/16/19 04:00 97.1 98 16 130/82 (98) 98 08/16/19 04:00 97 08/16/19 00:00 97.0 102 16 139/90 (106) 98 08/16/19 00:00 98 08/15/19 20:47 94 131/92 08/15/19 20:46 Room Air 08/15/19 20:00 96.6 100 16 126/86 (99) 98 08/15/19 20:00 102 08/15/19 16:00 97.3 104 18 122/76 (91) 96 08/15/19 16:00 104 08/15/19 12:00 106 08/15/19 12:00 97.5 106 20 127/87 (100) 94 08/15/19 08:46 112 146/96 Intake and Output 08/15/19 08/16/19 19:00 07:00 Intake Total 360 ml 540 ml Output Total 400 ml 5 ml Balance -40 ml 535 ml Intake Oral 360 ml 540 ml Output Urine Total 400 ml 5 ml # Voids 1 Laboratory Tests Test 08/16/19 05:00 Sodium Level 136 MMOL/L (136-145) Potassium Level 4.0 MMOL/L (3.5-5.1) Chloride Level 101 MMOL/L (98-107) Carbon Dioxide Level 27 MMOL/L (21-32) Anion Gap 8 mmol/L (5-15) Blood Urea Nitrogen 15 mg/dL (7-18) Creatinine 1.1 MG/DL (0.55-1.30) Estimat Glomerular Filtration Rate > 60 mL/min (>60) Glucose Level 98 MG/DL (74-106) Calcium Level 8.6 MG/DL (8.5-10.1) Troponin I 0.343 ng/mL (0.000-0.056) Pro-B-Type Natriuretic Peptide 7567 pg/mL (0-125) H Microbiology Date/Time Source Procedure Growth Status 08/13/19 12:46 Blood Blood Culture - Preliminary NO GROWTH AFTER 48 HOURS Resulted 08/13/19 12:25 Blood Blood Culture - Preliminary NO GROWTH AFTER 48 HOURS Resulted 08/13/19 13:30 Nasopharynx Coronavirus COVID-19 PCR (LENNY) - Final Complete Objective HEAD AND NECK: Showed no JVD. LUNGS: Clear. CARDIOVASCULAR: Regular S1 and S2 with no gallop or murmur. ABDOMEN: Soft. EXTREMITIES: No pitting edema. Cain Arteaga MD August 16, 2019 08:35
--- NOTE | 2019-08-16 08:51 | NUR ---
CASE MANAGEMENT:REVIEW 08/16/19 SI: BILATERAL PNEUMONIA. COVID-19 NEGATIVE X1 . MILD RENAL FAILURE CHOLELITHIASIS. LIVER CIRRHOSIS. 97.4 105 17 128/79 98% ON RA TROP 0.343 BNP 7567 IS: IV ROCEPHIN QD DOXYCYCLINE PO BID FLOMAX PO QHS IV LASIX QD COREG PO BID HEPARIN SQ BID : TELEMETRY STATUS DCP: HOME WHEN STABLE PLAN: COVID 19- NEGATIVE PER CARDIO: Will transfer to [facility] for cardiac cath to R/O CAD after second Covid is negative .
[2019-08-16] MEDS ORDERED: Lisinopril 10mg tab ORAL SCH (09:00)
[2019-08-16] MEDS ORDERED: Spironolactone 25mg tab ORAL SCH (09:00)
[2019-08-16] MEDS: Heparin 5000 units/ml inj SUBQ SCH ×2 (09:00→21:34)
--- NOTE | 2019-08-16 10:32 | Diagnostic Imaging Report ---
Procedure: XRAY Chest 1v Reason for study: Shortness of breath. Comparison films: 08/13/2019. FINDINGS: A single one view chest is obtained. Vascularity is normal. Left upper lobe infiltrate may be slightly improved. However there is worsening of right basilar infiltrate. Cardiomegaly noted . There are bilateral small effusions. The bony thorax appear unremarkable. IMPRESSION: Slightly improved left upper lobe infiltrate but increase of right basilar infiltrate.
--- NOTE | 2019-08-16 10:35 | Pulmonology Progress Note ---
Subjective ROS Limited/Unobtainable: No Interval Events: None new Constitutional: Reports: no symptoms HEENT: Repors: no symptoms Respiratory: Reports: no symptoms Cardiovascular: Reports: no symptoms Gastrointestinal/Abdominal: Reports: no symptoms Genitourinary: Reports: no symptoms Allergies: Coded Allergies: No Known Allergies (Unverified , 08/13/19) Objective Last 24 Hour Vital Signs Date Time Temp Pulse Resp B/P (MAP) Pulse Ox O2 Delivery O2 Flow Rate FiO2 08/16/19 09:00 128/79 08/16/19 08:22 Room Air 08/16/19 08:05 105 08/16/19 08:00 97.4 105 17 128/79 (95) 98 08/16/19 07:47 97 130/82 08/16/19 04:00 97.1 98 16 130/82 (98) 98 08/16/19 04:00 97 08/16/19 00:00 97.0 102 16 139/90 (106) 98 08/16/19 00:00 98 08/15/19 20:47 94 131/92 08/15/19 20:46 Room Air 08/15/19 20:00 96.6 100 16 126/86 (99) 98 08/15/19 20:00 102 08/15/19 16:00 97.3 104 18 122/76 (91) 96 08/15/19 16:00 104 08/15/19 12:00 106 08/15/19 12:00 97.5 106 20 127/87 (100) 94 Intake and Output 08/15/19 08/16/19 19:00 07:00 Intake Total 360 ml 540 ml Output Total 400 ml 5 ml Balance -40 ml 535 ml Intake Oral 360 ml 540 ml Output Urine Total 400 ml 5 ml # Voids 1 General Appearance: no acute distress HEENT: normocephalic Respiratory: chest wall non-tender, lungs clear Cardiovascular: normal peripheral pulses, normal rate Abdomen: normal bowel sounds Microbiology Date/Time Source Procedure Growth Status 08/13/19 12:46 Blood Blood Culture - Preliminary NO GROWTH AFTER 48 HOURS Resulted 08/13/19 12:25 Blood Blood Culture - Preliminary NO GROWTH AFTER 48 HOURS Resulted 08/13/19 13:30 Nasopharynx Coronavirus COVID-19 PCR (LENNY) - Final Complete Laboratory Tests 08/16/19 05:00: Sodium Level 136, Potassium Level 4.0, Chloride Level 101, Carbon Dioxide Level 27, Anion Gap 8, Blood Urea Nitrogen 15, Creatinine 1.1, Estimat Glomerular Filtration Rate > 60, Glucose Level 98, Calcium Level 8.6, Troponin I 0.343H, Pro-B-Type Natriuretic Peptide 7567H Current Medications Medications (Trade) Dose Ordered Sig/Jaspreet Route PRN Reason Start Time Stop Time Status Last Admin Dose Admin Acetaminophen (Tylenol) 650 mg Q4H PRN ORAL Mild Pain (Pain Scale 1-3) 08/13/19 18:15 09/12/19 18:14 08/16/19 07:47 Al Hydroxide/Mg Hydroxide (Mylanta II) 30 ml Q6H PRN ORAL dyspepsia 08/13/19 18:15 09/12/19 18:14 Albuterol/ Ipratropium (Albuterol/ Ipratropium) 3 ml Q6H PRN HHN Shortness of Breath 08/13/19 18:15 08/18/19 18:14 Carvedilol (Coreg) 3.125 mg EVERY 12 HOURS ORAL 08/14/19 09:00 09/13/19 08:59 08/16/19 07:47 Ceftriaxone Sodium 1 gm/ Dextrose 50 ml @ 100 mls/hr Q24H IVPB 08/14/19 18:30 08/21/19 18:29 08/15/19 18:01 Dextrose (Dextrose 50%) 25 ml Q30M PRN IV Hypoglycemia 08/13/19 18:15 11/11/19 18:14 Dextrose (Dextrose 50%) 50 ml Q30M PRN IV Hypoglycemia 08/13/19 18:15 11/11/19 18:14 Diphenhydramine HCl (Benadryl) 25 mg Q6H PRN ORAL Itching/Pruritis 08/13/19 18:15 09/12/19 18:14 Docusate Sodium (Colace) 100 mg EVERY 12 HOURS ORAL 08/13/19 21:00 09/12/19 20:59 08/16/19 07:48 Doxycycline Monohydrate (Doxycycline Monohydrate) 100 mg EVERY 12 HOURS ORAL 08/14/19 21:00 08/21/19 20:59 08/16/19 07:48 Furosemide (Lasix) 40 mg DAILY IV 08/14/19 09:00 09/13/19 08:59 08/16/19 07:49 Heparin Sodium (Porcine) (Heparin 5000 units/ml) 5,000 units EVERY 12 HOURS SUBQ 08/13/19 21:00 09/27/19 20:59 08/16/19 09:00 Lisinopril (ZestriL) 10 mg DAILY ORAL 08/16/19 09:00 09/15/19 08:59 08/16/19 09:00 Lorazepam (Ativan) 2 mg TIDPRN PRN ORAL For Anxiety 08/14/19 09:45 08/21/19 09:44 08/16/19 07:47 Magnesium Hydroxide (Mom) 30 ml HSPRN PRN ORAL Constipation 08/13/19 18:15 09/12/19 18:14 Ondansetron HCl (Zofran) 4 mg Q6H PRN IVP Nausea & Vomiting 08/13/19 18:15 09/12/19 18:14 Spironolactone (Aldactone) 25 mg DAILY ORAL 08/16/19 09:00 09/15/19 08:59 08/16/19 09:00 Tamsulosin HCl (Flomax) 0.4 mg BEDTIME ORAL 08/14/19 21:00 09/13/19 20:59 08/15/19 20:46 Temazepam (Restoril) 15 mg HSPRN PRN ORAL Insomnia 08/13/19 18:15 08/20/19 18:14 08/15/19 23:49 Assessment/Plan Assessment/Plan IMPRESSION: 1. Liver cirrhosis. 2. Cholelithiasis. 3. Bilateral pulmonary infiltrates. 4. Pneumonia. DISCUSSION: Negative for COVID-19. Will discuss dc planning with PMD Currently, he is comfortable on room air. I will follow carefully. Ginger Nevarez Omar Syed MD August 16, 2019 10:35
--- NOTE | 2019-08-16 10:48 | Nephrology Progress Note ---
Assessment/Plan Plan #LUPIS- monitor for contrast induced nephropathy #SOB- r/o COVID, r/o CHF- given elevated BNP #Elevated troponin #Cirrhosis on imaging #HTN #HLD #BPH - continue lasix 40 IV daily - monitor for ISAI - r/o covid - continue ceftriaxone and doxy per ID - 2d echo -> EF 30% [facility] pending second covid - diuresis per cardiology - continue lisinopril 10mg daily - continue aldactone 25mg daily - monitor BMP, mag and phos - continue coreg 3.125mg BID - continue flomax 0.4mg daily - avoid nephrotoxins - strict I&Os - daily weights Time spent 65 min, > 50% on care coodination and counseling Subjective ROS Limited/Unobtainable: No Constitutional: Denies: no symptoms, chills, diaphoresis, fever, malaise, weakness, other HEENT: Denies: no symptoms, eye pain, blurred vision, tearing, double vision, ear pain, ear discharge, nose pain, nose congestion, throat pain, throat swelling, mouth pain, mouth swelling, other Genitourinary: Denies: no symptoms, burning, discharge, frequency, flank pain, hematuria, incontinence, pain, urgency, other Neurologic/Psychiatric: Denies: no symptoms, anxiety, depressed, emotional problems, headache, numbness, paresthesia, pre-existing deficit, seizure, tingling, tremors, weakness, other Subjective Cr stable Echo with EF close to 30% on lasix 40 IV daily plan to [facility] pending second covid Chest xray Slightly improved left upper lobe infiltrate but increase of right basilar infiltrate. Objective Objective Last 24 Hour Vital Signs Date Time Temp Pulse Resp B/P (MAP) Pulse Ox O2 Delivery O2 Flow Rate FiO2 08/16/19 09:00 128/79 08/16/19 08:22 Room Air 08/16/19 08:05 105 08/16/19 08:00 97.4 105 17 128/79 (95) 98 08/16/19 07:47 97 130/82 08/16/19 04:00 97.1 98 16 130/82 (98) 98 08/16/19 04:00 97 08/16/19 00:00 97.0 102 16 139/90 (106) 98 08/16/19 00:00 98 5/21/20 20:47 94 131/92 08/15/19 20:46 Room Air 08/15/19 20:00 96.6 100 16 126/86 (99) 98 08/15/19 20:00 102 08/15/19 16:00 97.3 104 18 122/76 (91) 96 08/15/19 16:00 104 08/15/19 12:00 106 08/15/19 12:00 97.5 106 20 127/87 (100) 94 Intake and Output 08/15/19 08/16/19 19:00 07:00 Intake Total 360 ml 540 ml Output Total 400 ml 5 ml Balance -40 ml 535 ml Intake Oral 360 ml 540 ml Output Urine Total 400 ml 5 ml # Voids 1 Laboratory Tests 08/16/19 05:00: Sodium Level 136, Potassium Level 4.0, Chloride Level 101, Carbon Dioxide Level 27, Anion Gap 8, Blood Urea Nitrogen 15, Creatinine 1.1, Estimat Glomerular Filtration Rate > 60, Glucose Level 98, Calcium Level 8.6, Troponin I 0.343H, Pro-B-Type Natriuretic Peptide 7567H Height (Feet): 5 Height (Inches): 4.00 Weight (Pounds): 164 Objective General Appearance: WD/WN, no apparent distress Lines, tubes and drains: peripheral HEENT: normocephalic, atraumatic Neck: non-tender, normal alignment Respiratory/Chest: chest wall non-tender, rhonchi - bilaterally Cardiovascular/Chest: normal peripheral pulses, normal rate, regular rhythm Abdomen: normal bowel sounds, non tender, soft, no mass Extremities: non-tender, normal inspection, no calf tenderness Skin Exam: no diaphoresis Neurologic: alert, oriented x 3, responsive Musculoskeletal: normal muscle bulk Brandi Real M.D. August 16, 2019 10:48
[2019-08-16] MEDS ORDERED: Pneumococcal Vaccine 25mcg/0.5ml IM ONE (14:15)
--- NOTE | 2019-08-16 15:30 | Discharge Summary ---
Discharge Summary Hospital Course Date of Admission August 13, 2019 at 13:30 Date of Discharge 08/16/19 Admitting Diagnosis SOB YURIY Gomez is a 69 year old male who was admitted on August 13, 2019 at 13:30 for Shortness Of Breath Consultations Cardiology, Pulm, ID Procedures None Hospital Course 69 year old man with former history of alcoholism, BPH who presented with dyspnea and cough, found to have bilateral infiltrates and pleural effusions on CTA chest. Patient found to have EF 25% on TTE, seen by cardiology, started on IV Lasix diuresis with improvement in his dyspnea. No hypoxemia noted. Patient was to be transferred to [facility] for cardiac cath however he wanted to defer to outpatient. Per Dr. Arteaga's recs he was fitted for Life Vest and was discharged home in stable condition on Lasix, Aldactone, lisinopril and Coreg. Will follow up with Dr. Bradley as outpatient. Discharge Dx: #Acute on chronic systolic CHF #Type II NSTEMI #HTN #HLD #LUPIS, likely due to cardiorenal syndrome #History of alcoholism #Possible early cirrhosis based on imaging #BPH I spent 35 minutes on this patient's discharge which included coordination with RN, bilingual patient support caseworker, consulting MDs Discharge Condition Upon Discharge: improving Discharge Vital Signs Last Vital Signs Date Time Temp Pulse Resp B/P (MAP) Pulse Ox O2 Delivery O2 Flow Rate FiO2 08/16/19 12:00 97.5 102 16 118/75 (89) 97 08/16/19 08:22 Room Air 08/14/19 09:00 2.0 08/13/19 17:07 99 Discharge Disposition Patient was discharged to Home Discharge Diagnoses: (1) Acute on chronic systolic (congestive) heart failure Chance Brand MD August 16, 2019 15:30
--- NOTE | 2019-08-16 16:41 | NUR ---
DISCHARGE PLANNED: PATIENT ACCEPTED TO [facility] T: [phone] F:[phone] PATIENT TO BE DISCHARGE TODAY
--- NOTE | 2019-08-16 17:19 | Infectious Diseases Prog Note ---
Assessment/Plan Assessment/Plan ASSESSMENT AND PLAN: 1. ? CAP, ? other - rocephin and doxycycline - clinically stable - chest x-ray - improved 2. COVID-19 virus pcr negative 3. Hypertension. 4. Blood pressure treatment per Cardiology. 5. He also came in with chest pain. 6. No known drug allergies. 7. Social history is negative. 8. Family history is noncontributory. 9. MAR was noted. 10. Case discussed with RN. 11. Continue treatment per primary consultants. Subjective Constitutional: Denies: fever HEENT: Denies: congestion Respiratory: Denies: shortness of breath Cardiovascular: Denies: chest pain Gastrointestinal/Abdominal: Denies: nausea, vomiting, diarrhea Genitourinary: Reports: other - no miller Neurologic: Denies: headache Psychiatric: Denies: depression Skin: Denies: rash Hematologic: Denies: bleeding Musculoskeletal: Denies: pain Allergies: Coded Allergies: No Known Allergies (Unverified , 08/13/19) Objective Vital Signs Last 24 Hour Vital Signs Date Time Temp Pulse Resp B/P (MAP) Pulse Ox O2 Delivery O2 Flow Rate FiO2 08/16/19 16:25 95 08/16/19 16:00 97.3 96 18 127/72 (90) 96 08/16/19 12:00 97.5 102 16 118/75 (89) 97 08/16/19 12:00 102 08/16/19 09:00 128/79 08/16/19 08:22 Room Air 08/16/19 08:05 105 08/16/19 08:00 97.4 105 17 128/79 (95) 98 08/16/19 07:47 97 130/82 08/16/19 04:00 97.1 98 16 130/82 (98) 98 08/16/19 04:00 97 08/16/19 00:00 97.0 102 16 139/90 (106) 98 08/16/19 00:00 98 08/15/19 20:47 94 131/92 08/15/19 20:46 Room Air 08/15/19 20:00 96.6 100 16 126/86 (99) 98 08/15/19 20:00 102 Height (Feet): 5 Height (Inches): 4.00 Weight (Pounds): 164 General Appearance: no acute distress HEENT: normocephalic, atraumatic, anicteric, mucous membranes moist Respiratory/Chest: crackles/rales, rhonchi - bilaterally Cardiovascular: normal rate, regular rhythm, no gallop/murmur, no JVD Abdomen: normal bowel sounds, soft, non tender, no organomegaly Genitourinary: other - no miller Extremities: no cyanosis Skin: no rash 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 Comparison films: 08/13/2019. FINDINGS: A single one view chest is obtained. Vascularity is normal. Left upper lobe infiltrate may be slightly improved. However there is worsening of right basilar infiltrate. Cardiomegaly noted . There are bilateral small effusions. The bony thorax appear unremarkable. IMPRESSION: Slightly improved left upper lobe infiltrate but increase of right basilar infiltrate. CT chest: FINDINGS: There is adequate opacification of the pulmonary vascularity. There is no central filling defects or thrombus identified. Peripheral subsegmental branches also appear unremarkable. Aorta is normal in caliber. There is no mediastinal mass or adenopathy. There are bilateral infiltrates left greater than right. Bilateral moderate pleural effusions demonstrated. Limited images through the upper abdomen show a cirrhotic liver. Small layering gallstones at the gallbladder neck. Degenerative changes of the spine noted. IMPRESSION: NO CT EVIDENCE OF PULMONARY EMBOLISM. BILATERAL INFILTRATES AND BILATERAL EFFUSIONS. CIRRHOSIS. GALLSTONES. Microbiology Date/Time Source Procedure Growth Status 08/13/19 12:46 Blood Blood Culture - Preliminary NO GROWTH AFTER 48 HOURS Resulted 08/13/19 13:30 Nasopharynx Coronavirus COVID-19 PCR (LENNY) - Final Complete Labs Test 08/13/19 19:15 08/14/19 05:33 08/14/19 10:50 08/14/19 20:19 Troponin I 0.090 ng/mL (0.000-0.056) White Blood Count 9.7 K/UL (4.8-10.8) Red Blood Count 4.75 M/UL (4.70-6.10) Hemoglobin 14.9 G/DL (14.2-18.0) Hematocrit 43.4 % (42.0-52.0) Mean Corpuscular Volume 91 FL (80-99) Mean Corpuscular Hemoglobin 31.3 PG (27.0-31.0) Mean Corpuscular Hemoglobin Concent 34.4 G/DL (32.0-36.0) Red Cell Distribution Width 11.9 % (11.6-14.8) Platelet Count 313 K/UL (150-450) Mean Platelet Volume 5.6 FL (6.5-10.1) Neutrophils (%) (Auto) 57.7 % (45.0-75.0) Lymphocytes (%) (Auto) 27.9 % (20.0-45.0) Monocytes (%) (Auto) 11.3 % (1.0-10.0) Eosinophils (%) (Auto) 2.1 % (0.0-3.0) Basophils (%) (Auto) 1.0 % (0.0-2.0) Sodium Level 139 MMOL/L (136-145) Potassium Level 4.5 MMOL/L (3.5-5.1) Chloride Level 103 MMOL/L (98-107) Carbon Dioxide Level 26 MMOL/L (21-32) Anion Gap 11 mmol/L (5-15) Blood Urea Nitrogen 21 mg/dL (7-18) Creatinine 1.4 MG/DL (0.55-1.30) Estimat Glomerular Filtration Rate 50.2 mL/min (>60) Glucose Level 88 MG/DL (74-106) Calcium Level 8.8 MG/DL (8.5-10.1) Urine Color Pale yellow Urine Appearance Clear Urine pH 7 (4.5-8.0) Urine Specific [place] 1.005 (1.005-1.035) Urine Protein Negative (NEGATIVE) Urine Glucose (UA) Negative (NEGATIVE) Urine Ketones Negative (NEGATIVE) Urine Blood Negative (NEGATIVE) Urine Nitrite Negative (NEGATIVE) Urine Bilirubin Negative (NEGATIVE) Urine Urobilinogen Normal MG/DL (0.0-1.0) Urine Leukocyte Esterase Negative (NEGATIVE) Urine Random Sodium 107 mmol/L (20-110) Urine Creatinine < 5.0 MG/DL (30.0-125.0) Test 08/15/19 05:42 08/16/19 05:00 White Blood Count 8.7 K/UL (4.8-10.8) Red Blood Count 4.76 M/UL (4.70-6.10) Hemoglobin 15.0 G/DL (14.2-18.0) Hematocrit 42.8 % (42.0-52.0) Mean Corpuscular Volume 90 FL (80-99) Mean Corpuscular Hemoglobin 31.5 PG (27.0-31.0) Mean Corpuscular Hemoglobin Concent 35.1 G/DL (32.0-36.0) Red Cell Distribution Width 11.7 % (11.6-14.8) Platelet Count 270 K/UL (150-450) Mean Platelet Volume 5.8 FL (6.5-10.1) Neutrophils (%) (Auto) 50.3 % (45.0-75.0) Lymphocytes (%) (Auto) 34.1 % (20.0-45.0) Monocytes (%) (Auto) 10.7 % (1.0-10.0) Eosinophils (%) (Auto) 3.6 % (0.0-3.0) Basophils (%) (Auto) 1.3 % (0.0-2.0) Sodium Level 138 MMOL/L (136-145) 136 MMOL/L (136-145) Potassium Level 4.1 MMOL/L (3.5-5.1) 4.0 MMOL/L (3.5-5.1) Chloride Level 102 MMOL/L (98-107) 101 MMOL/L (98-107) Carbon Dioxide Level 27 MMOL/L (21-32) 27 MMOL/L (21-32) Anion Gap 9 mmol/L (5-15) 8 mmol/L (5-15) Blood Urea Nitrogen 21 mg/dL (7-18) 15 mg/dL (7-18) Creatinine 1.3 MG/DL (0.55-1.30) 1.1 MG/DL (0.55-1.30) Estimat Glomerular Filtration Rate 54.7 mL/min (>60) > 60 mL/min (>60) Glucose Level 94 MG/DL (74-106) 98 MG/DL (74-106) Calcium Level 8.9 MG/DL (8.5-10.1) 8.6 MG/DL (8.5-10.1) Total Bilirubin 0.9 MG/DL (0.2-1.0) Aspartate Amino Transf (AST/SGOT) 22 U/L (15-37) Alanine Aminotransferase (ALT/SGPT) 16 U/L (12-78) Alkaline Phosphatase 77 U/L (46-116) Troponin I 0.413 ng/mL (0.000-0.056) 0.343 ng/mL (0.000-0.056) Pro-B-Type Natriuretic Peptide 08222 pg/mL (0-125) 7567 pg/mL (0-125) Total Protein 7.3 G/DL (6.4-8.2) Albumin 2.6 G/DL (3.4-5.0) Globulin 4.7 g/dL Albumin/Globulin Ratio 0.6 (1.0-2.7) Laboratory Tests Test 08/16/19 05:00 Sodium Level 136 MMOL/L (136-145) Potassium Level 4.0 MMOL/L (3.5-5.1) Chloride Level 101 MMOL/L (98-107) Carbon Dioxide Level 27 MMOL/L (21-32) Anion Gap 8 mmol/L (5-15) Blood Urea Nitrogen 15 mg/dL (7-18) Creatinine 1.1 MG/DL (0.55-1.30) Estimat Glomerular Filtration Rate > 60 mL/min (>60) Glucose Level 98 MG/DL (74-106) Calcium Level 8.6 MG/DL (8.5-10.1) Troponin I 0.343 ng/mL (0.000-0.056) Pro-B-Type Natriuretic Peptide 7567 pg/mL (0-125) H Current Medications Medications (Trade) Dose Ordered Sig/Jaspreet Route PRN Reason Start Time Stop Time Status Last Admin Dose Admin Acetaminophen (Tylenol) 650 mg Q4H PRN ORAL Mild Pain (Pain Scale 1-3) 08/13/19 18:15 09/12/19 18:14 08/16/19 12:14 Al Hydroxide/Mg Hydroxide (Mylanta II) 30 ml Q6H PRN ORAL dyspepsia 08/13/19 18:15 09/12/19 18:14 Albuterol/ Ipratropium (Albuterol/ Ipratropium) 3 ml Q6H PRN HHN Shortness of Breath 08/13/19 18:15 08/18/19 18:14 Carvedilol (Coreg) 3.125 mg EVERY 12 HOURS ORAL 08/14/19 09:00 09/13/19 08:59 08/16/19 07:47 Ceftriaxone Sodium 1 gm/ Dextrose 50 ml @ 100 mls/hr Q24H IVPB 08/14/19 18:30 08/21/19 18:29 08/15/19 18:01 Dextrose (Dextrose 50%) 25 ml Q30M PRN IV Hypoglycemia 08/13/19 18:15 11/11/19 18:14 Dextrose (Dextrose 50%) 50 ml Q30M PRN IV Hypoglycemia 08/13/19 18:15 11/11/19 18:14 Diphenhydramine HCl (Benadryl) 25 mg Q6H PRN ORAL Itching/Pruritis 08/13/19 18:15 09/12/19 18:14 Docusate Sodium (Colace) 100 mg EVERY 12 HOURS ORAL 08/13/19 21:00 09/12/19 20:59 08/16/19 07:48 Doxycycline Monohydrate (Doxycycline Monohydrate) 100 mg EVERY 12 HOURS ORAL 08/14/19 21:00 08/21/19 20:59 08/16/19 07:48 Furosemide (Lasix) 40 mg DAILY IV 08/14/19 09:00 09/13/19 08:59 08/16/19 07:49 Heparin Sodium (Porcine) (Heparin 5000 units/ml) 5,000 units EVERY 12 HOURS SUBQ 08/13/19 21:00 09/27/19 20:59 08/16/19 09:00 Lisinopril (ZestriL) 10 mg DAILY ORAL 08/16/19 09:00 09/15/19 08:59 08/16/19 09:00 Lorazepam (Ativan) 2 mg TIDPRN PRN ORAL For Anxiety 08/14/19 09:45 08/21/19 09:44 08/16/19 14:31 Magnesium Hydroxide (Mom) 30 ml HSPRN PRN ORAL Constipation 08/13/19 18:15 09/12/19 18:14 Ondansetron HCl (Zofran) 4 mg Q6H PRN IVP Nausea & Vomiting 08/13/19 18:15 09/12/19 18:14 Spironolactone (Aldactone) 25 mg DAILY ORAL 08/16/19 09:00 09/15/19 08:59 08/16/19 09:00 Tamsulosin HCl (Flomax) 0.4 mg BEDTIME ORAL 08/14/19 21:00 09/13/19 20:59 08/15/19 20:46 Temazepam (Restoril) 15 mg HSPRN PRN ORAL Insomnia 08/13/19 18:15 08/20/19 18:14 08/15/19 23:49 Joshua Olivares MD August 16, 2019 17:18
[2019-08-16] MEDS: cefTRIAXone 1 GM in D5W 50 ML IVPB SCH (17:32)
--- NOTE | 2019-08-16 20:00 | NUR ---
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 NO SIGNS AND SYMPTOMS OF ACUTE CARDIO RESPIRATORY DISTRESS/SHORTNESS OF BREATH, DENIES CHEST PAIN, NO PERIPHERAL EDEMA NOTED. NO IV ACCESS NOTED. CONTINENT OF B/B, NO REPORT OF GI DISCOMFORT, NO N/V/D. SIDE RAILS UP X2 FOR MOBILITY, BED IN LOWEST POSITION FOR SAFETY, ENCOURAGED PATIENT TO UTILIZE CALL LIGHT FOR ASSISTANCE, VERBALIZED UNDERSTANDING. NAD. DC TONIGHT VIA FAMILY VEHICLE AFTER APPLICATION OF LIFE VEST, PATIENT/FAMILY AWARE.
[2019-08-16] MEDS: Tamsulosin 0.4mg cap ORAL SCH (21:31)
--- NOTE | 2019-08-16 22:00 | NUR ---
NURSE NOTES:patient discharged,a/o, with family member, all [employer] education provided by the company.
--- NOTE | 2019-08-16 22:00 | NUR ---
NURSE NOTES: DISCHARGED VIA FAMILY VEHICLE WITH ALL PERSONAL BELONGINGS, ACCOMPANIED BY SON, FERNANDO. VITALS STABLE, AFEBRILE. NAD.
== END 2019-08-16 22:00 | disposition home or self-care (01) | DRG 280 ==
LOC: EDBD 12:26 → EMR 12:49 → 2E 13:30 → EDBEDREQ 13:41 → 2E 08-15 16:37
DX: I13.0 Hypertensive heart and chronic kidney disease with heart failure and stage 1 through stage 4 chronic kidney disease, or unspecified chronic kidney disease (principal); I21.A1 Myocardial infarction type 2; J18.9 Pneumonia, unspecified organism; I50.23 Acute on chronic systolic (congestive) heart failure; N17.9 Acute kidney failure, unspecified; K74.60 Unspecified cirrhosis of liver; K80.20 Calculus of gallbladder without cholecystitis without obstruction; Z03.818 Encounter for observation for suspected exposure to other biological agents ruled out; E78.5 Hyperlipidemia, unspecified; F10.21 Alcohol dependence, in remission; N40.0 Benign prostatic hyperplasia without lower urinary tract symptoms; N18.9 Chronic kidney disease, unspecified
CPT/HCPCS: 36415; 71045; 71275; 80048; 80053; 81003; 82164; 82570; 83605; 83880; 84300; 84484; 85025; 85379; 86738; 87040; 87635; 90732; 93005; 93306; 96365; 96368; 96375; 99291